=== PATIENT | male | born 1990 | race Caucasian/White ===

== ENCOUNTER 2018-09-21 03:34 | Emergency (ER) | payer MEDICAID, SELFPAY ==
[2018-09-21 03:36] VITALS: BP 148/108; PULSE 126; RESP 18; TEMP 36.8; O2SAT 99; BMI 22.6
[2018-09-21] MEDS: 0.9% Normal Saline 1,000 ML 1000 ML IV (03:53)
[2018-09-21] MEDS: Ondansetron 4 MG/2 ML Vial IV (03:53)
[2018-09-21 03:55] VITALS: RESP 20
[2018-09-21] MEDS: LORazepam 2 MG/ML Syringe 1 MG IV (03:55)
[2018-09-21 04:04] LABS: Absolute Lymphocyte Count 2.41 X10^3/ul (0.83-4.51); Absolute Neutrophil Count 6.7 X10^3/uL (2.0-7.7); Basophil# 0.04 X10^3/uL; Basophil% 0.4 % (0-1); Eosinophil# 0.11 X10^3/uL; Eosinophils% 1.1 % (0-5); Hematocrit 50.5 % (40-54); Hemoglobin 17.9 g/dl (13.0-16.5); Lymphocyte # 2.41 X10^3/ul (4.0); Lymphocyte % 23.9 % (19-41); Mean Corp Hgb Conc 35.4 g/gl (32-36); Mean Corpuscular Hgb 30.5 pg (27.0-32.0); Mean Platelet Vol. 9.4 fl (6.2-12.0); Monocyte# 0.77 X10^3/uL; Monocyte% 7.6 % (0-10); Neutrophil # 6.74 X10^3/uL (2.7-7.7); Neutrophil % 66.8 % (47-70); Platelet Count 213 K/mm3 (150-450); RBC Distribution Width CV 12.7 % (11.6-14.6); RBC Distribution Width SD 39.7 fl (35.1-43.9); Red Blood Count 5.87 M/mm3 (4.6-6.2); White Blood Count 10.1 K/mm3 (4.4-11.0)
[2018-09-21 04:10] LABS: POSITIVE COUNT NO; POSITIVE DIFFERENTIAL NO; POSITIVE MORPHOLOGY NO
[2018-09-21 04:31] LABS: ALB/GLOB Ratio 1.5 RATIO (0.9-2.4); AST(SGOT) 37 U/L (15-37); Alanine Aminotransfer ALT/SGPT 47 U/L (16-61); Albumin, Serum 4.8 g/dL (3.2-5.0); Alkaline Phosphatase 99 U/L (45-117); Anion Gap 15 (5-15); BUN 8 mg/dL (7-18); BUN/Creat Ratio 9.3 RATIO (10-20); Calcium,Total 9.5 mg/dL (8.5-10.1); Chloride 95 mmol/L (98-107); Creatinine, Serum 0.86 mg/dL (0.70-1.30); EST Glomerular Filtration Rate 112 mL/min (>60); Est Glom Filt Rate - Afr Amer 136 mL/min (>60); Estimated Creatinine Clearance 121.91 ml/min; Globulin 3.2 g/dL (2.2-4.2); Glucose 103 mg/dL (74-106); Potassium 3.4 mmol/L (3.5-5.1); Sodium Level 137 mmol/L (136-145)
--- NOTE | 2018-09-21 04:35 | ED.DCSUM_ITS ---
- ER Visit Summary Date of Service: 09/21/18 Chief Complaint: Nausea, vomiting History of Present Illness: The patient is a 27 M presents to the emergency department nausea and vomiting. Patient states he has been on an alcohol binge. He states he cut down on his drinking 2 days ago. He states that he is thrown up approximately 30 times. He states he only thing is able to keep down is enough alcohol to quell his withdrawal symptoms. He does not have any interest in detox at this time. He denies being suicidal homicidal. He denies any fevers or chills. He is on no other daily medications. Physical Examination: Vital signs reviewed General: Well-nourished, well-developed Head: Normocephalic, atraumatic Eyes: Pupils equal and reactive, extraocular muscles intact Neck, supple, no lymphadenopathy Heart: Regular rate and rhythm Respiratory: No distress, clear bilaterally Abdomen: Soft, nontender, nondistended, no peritoneal signs Back: Nontender Extremities: Nontender, no edema, no cords Skin: Normal color no rash Neuro: Alert and oriented, no focal or lateralizing deficits Test Results: [] Emergency Department Course and Treatment: IV was established. Patient was given fluids, Ativan, and Zofran. Within 30 minutes he had marked improvement of his symptoms. Within an hour he had total resolution of his nausea. He is able to drink. His labs are unremarkable. His LFTs were normal. I did reev aluate the patient and he still does not want to do any inpatient detox. I do feel that this is reasonable. He has not an acute withdrawal. I do feel that he is safe for outpatient therapy. He will be given outpatient resources for detox. He is comfortable with this plan of care. Treatment Plan: [] Disposition: Discharge Impression: 1. Nausea and vomiting This note was generated with [employer] dictation software. It may contain incorrect words, spelling, and punctuation that were not noted in review of the chart prior to signing ED Disposition - Plan for ED Patient: Instructions: ED Nausea Vomiting Referrals: Counseling,Center [GROUP OF PHYSICIANS] -
[2018-09-21] MEDS: Ondansetron ODT 4 MG Tablet PO (04:43)
[2018-09-21 04:44] VITALS: BP 152/105; PULSE 75; RESP 16; O2SAT 98
== END 2018-09-21 04:50 | disposition home or self-care (01) ==
LOC: ED 04:12
PROVIDERS: Emergency Provider Emergency Medicine
DX: R11.2 Nausea with vomiting, unspecified (principal); F41.9 Anxiety disorder, unspecified; Z79.899 Other long term (current) drug therapy
CPT/HCPCS: 80053; 85025; 96361; 96374; 96375; 99285; J7030; J2405

== ENCOUNTER 2020-10-05 10:13 | Inpatient (IN) | payer MEDICAID, SELFPAY ==
[2020-10-05 10:15] VITALS: BP 140/58; PULSE 128; RESP 17; TEMP 36.3; O2SAT 96; BMI 20.6
--- NOTE | 2020-10-05 10:38 | EKG12_ITS ---
Test Reason : Blood Pressure : / mmHG Vent. Rate : 109 BPM Atrial Rate : 109 BPM P-R Int : 136 ms QRS Dur : 100 ms QT Int : 332 ms P-R-T Axes : 081 079 064 degrees QTc Int : 447 ms Sinus tachycardia Otherwise normal ECG Confirmed by TREMAINE CUENCA, DHARMESH ([id number]), editor map TEN EGAN ([id number]) on 10/06/2020 12:42:24 PM Referred By: NANDA Confirmed By:DHARMESH PENALOZA MD
--- NOTE | 2020-10-05 10:52 | NURSING ---
NO OLD EKGS
[2020-10-05 10:54] LABS: Absolute Lymphocyte Count 1.81 X10^3/uL (0.83-4.51); Absolute Neutrophil Count 6.3 X10^3/uL (2.0-7.7); Basophil# 0.07 X10^3/uL; Basophil% 0.8 % (0-1); Eosinophil# 0.05 X10^3/uL; Eosinophils% 0.6 % (0-5); Hematocrit 54.6 % (40-54); Lymphocyte # 1.81 X10^3/ul (4.0); Lymphocyte % 21.1 % (19-41); Mean Corp Hgb Conc 35.5 g/dL (32-36); Mean Corpuscular Hgb 30.1 pg (27.0-32.0); Mean Corpuscular Volume 84.8 fL (80-94); Mean Platelet Vol. 9.3 fl (6.2-12.0); Monocyte# 0.36 X10^3/uL; Monocyte% 4.2 % (0-10); NRBC Flagged by Analyzer 0 % (0-5); Neutrophil # 6.26 X10^3/uL (2.7-7.7); Platelet Count 263 K/mm3 (150-450); RBC Distribution Width CV 12.6 % (11.6-14.6); RBC Distribution Width SD 38.7 fl (35.1-43.9); Red Blood Count 6.44 M/mm3 (4.6-6.2); White Blood Count 8.6 K/mm3 (4.4-11.0)
--- NOTE | 2020-10-05 10:54 | ED.DCSUM_ITS ---
- ER Visit Summary Date of Service: 10/05/20 Chief Complaint: Need help with alcohol History of Present Illness: The patient is a 29 M with no primary care physician. He reports that he has been drinking daily for the past 12 years. He drinks approximately 12 beers per day. His last drink was an hour ago. He has never been through detox or rehab. Does report that he has withdrawal symptoms in the morning. He has never had a seizure. Patient reports has been nausea and vomit approximately 15 times today. No blood in his emesis. Reports he is a sore throat from vomiting. He denies any abdominal pain or diarrhea. Physical Examination: Vitals: Stable. Afebrile. General: Well-nourished and well-developed. Head: Normocephalic atraumatic. Neck: Supple, no lymphadenopathy. No JVD. Nontender. Cardiovascular: Tachycardic regular rhythm. No murmurs. Respiratory: No respiratory distress. Clear to auscultation bilaterally. Abdominal: Soft, nontender, nondistended, normal bowel sounds. No guarding, rebound, or peritoneal signs. Back: Nontender. Extremities: Nontender, no edema. Skin: Normal color, no rash. Neurologic: Alert and oriented ?3. Cranial nerves II through XII are intact. Normal strength and sensation. Psych: Normal affect. Test Results: EKG sinus tach at [address] changes. CBC shows an H&H of 19.4 and 54.6, segment neutrophils 73. Chem-7 shows a glucose of 110. LFTs are normal. Lipase is 72. Alcohol is 160. Emergency Department Course and Treatment: Patient had an IV placed. He was given a liter of normal saline and Zofran IV. He is resting more comfortably. Treatment Plan: Patient be discussed with the hospitalist and admitted for further evaluation and treatment. Disposition: Admitted in improved condition. Impression: 1. Alcohol abuse. This note was generated with [employer] dictation software. It may contain incorrect words, spelling, and punctuation that were not noted in review of the chart prior to signing ED Disposition - Plan for ED Patient: Referrals: Care Physician,No Primary [Primary Care Provider] -
[2020-10-05] MEDS: 0.9% Normal Saline 1,000 ML 1000 ML IV (10:55)
[2020-10-05] MEDS: Ondansetron 4 MG/2 ML Vial IV (10:56)
[2020-10-05 11:00] LABS: Hemoglobin 19.4 g/dL (13.0-16.5)
[2020-10-05 11:12] LABS: ALB/GLOB Ratio 1.3 RATIO (0.9-2.4); AST(SGOT) 26 U/L (15-37); Alanine Aminotransfer ALT/SGPT 44 U/L (16-61); Albumin, Serum 4.6 g/dL (3.2-5.0); Alkaline Phosphatase 84 U/L (45-117); Anion Gap 6 (5-15); BUN 15 mg/dL (7-18); BUN/Creat Ratio 15.3 RATIO (10-20); Calcium,Total 9.4 mg/dL (8.5-10.1); Chloride 103 mmol/L (98-107); Creatinine, Serum 0.98 mg/dL (0.70-1.30); EST Glomerular Filtration Rate 95 mL/min (>60); Est Glom Filt Rate - Afr Amer 114 mL/min (>60); Estimated Creatinine Clearance 98.84 ml/min; Globulin 3.6 g/dL (2.2-4.2); Glucose 110 mg/dL (74-106); Lipase 72 U/L (73-393); Protein, Total 8.2 g/dL (6.4-8.2); Sodium Level 139 mmol/L (136-145)
--- NOTE | 2020-10-05 11:30 | CM.ED ---
SOCIAL WORK Referral Source: Nursing Reason for Consult: Substance Abuse-patient requesting detox Met with patient in room. Introduced role and reason for referral. Patient open to talking with this worker. Patient states has been drinking heavily for the last 8 days and using marijuana. Patient reports drinking 12 beers/day. Patient states last drink was an hour prior to arrival. Patient educated on [facility]. Patient unsure of needs after detox at this time. Plan: Admit to [facility] D. Farhat, TELEVISION TUBE INSPECTOR, INSIDE BARREL LATHE OPERATOR
[2020-10-05 12:09] VITALS: BP 139/93; PULSE 88; RESP 16; TEMP 36.8; O2SAT 97
--- NOTE | 2020-10-05 12:13 | CM.ED ---
SOCIAL WORK Call to [facility], spoke with Sowmya to update on patient's admission to [facility]. [facility] will update Anastasiya on patient's admission. Laurie Dougherty, GLASSBLOWER, PLATFORM CONSULTANT
[2020-10-05 12:30] LABS: Amphetamine Urine VISTA NEGATIVE (<1000 ng/mL); Barbiturate Urine VISTA NEGATIVE (< 200 ng/mL); Benzodiazepine Urine VISTA NEGATIVE (< 200 ng/mL); Cocaine Urine VISTA NEGATIVE (< 300 ng/mL); Ecstacy Urine VISTA NEGATIVE (< 500 ng/mL); Methadone Urine VISTA NEGATIVE (< 300 ng/mL); PCP Urine VISTA NEGATIVE (< 25 ng/mL); THC Urine VISTA POSITIVE (< 50 ng/mL); Vista UDS pH Range 6
--- NOTE | 2020-10-05 12:32 | PCM.HP.STD ---
History of Present Illness Date of Admission: 10/05/20 Chief Complaint: Alcohol abuse The patient is a 29 year old M [facility] as below who presents to the hospital after multiple episodes of emesis today. He denies any recent sick contacts, and does not think that he ate anything abnormal. Denies any diarrhea. He states that he drinks about 12 beers a day every day for the last 12 years. He seems to be very embarrassed about his issue and he wants to quit drinking alcohol if possible. He has never gone through detox before and his last drink was 1 hour prior to admission. He does appear willing to follow-up with rehab as an outpatient to get off of alcohol. He has never gone through detox or withdrawal but he says that he had been sober for 2 years while living in [place] and he started drinking almost immediately when he came back to the area. 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 Lab work is unremarkable, though he does show signs of dehydration hemoglobin up to 19.4. Urine drug screen is positive for now ethyl alcohol level of 160 as well as positive marijuana. Past Medical History Allergies No Known Allergies Allergy (Verified 10/05/20 10:14) Home Medications: Ambulatory Orders Medication Instructions Recorded NK 10/05/20 Surgical History: - - Nasal Smoking Status: Current some day smoker Tobacco Use: Cigarettes Alcohol: Heavy Drugs: Marijuana - *Family History Maternal History Items: Heart Disease Paternal History Items: Heart Disease Review of Systems Constitutional: Denies: Chills, Fever, Weight Change HEENT: Denies: Head Aches, Sinus Congestion, Sinus Drainage Cardiovascular: Denies: Chest Pain, Palpitations Respiratory: Denies: Cough, Shortness of breath at rest, Sputum production Gastrointestinal: Reports: Nausea, Vomiting. Denies: Abdominal Pain Genitourinary: Denies: Dysuria Musculoskeletal: Denies: Joint Pain, Joint Tenderness Skin: Denies: Rash, Wounds Neurological: Denies: Numbness, Tingling, Focal weakness Psychiatric: Reports: Anxiety. Denies: Depression Hematologic/ Lymphatic: Denies: Easy Bruising, Easy Bleeding VTE Information - Inpt Only VTE Present on Admission: No - Physical Exam Vitals/I&O's: Vital Signs Temp Pulse Resp BP Pulse Ox 98.3 F 88 16 139/93 H 97 10/05/20 12:09 10/05/20 12:09 10/05/20 12:09 10/05/20 12:09 10/05/20 12:09 Oxygen Delivery Method Room Air Weight: 139 lb 12.369 oz Body Mass Index (BMI) 20.6 Intake and Output for Last 24 Hours 10/03/20 10/04/20 10/05/20 23:59 23:59 23:59 Intake Total 1000 / 1000 Balance 1000 / 1000 General: Alert, Oriented x3, Cooperative, No apparent distress HEENT: Atraumatic, PERRLA, EOMI, Normocephalic Oral: Dry Mucosa Neck: Supple, No JVD Lungs: Clear to auscultation, Normal air movement, No rhonchi, No wheeze, No rales Cardiovascular: Regular rate, Regular Rhythm, Normal S1, Normal S2, No murmurs Abdomen: Soft, Non Tender, Non-Distended, No Hepato-splenomegaly Extremities: No edema, Capillary Refill Less than 3 Seconds Skin: No rashes, No breakdown Neurological: Neuro grossly intact, Sensory exam intact to light touch and pain Psych/Mental Status: Anxious, Restless Laboratory Results 10/05/20 10:45: WBC 8.6, RBC 6.44 H, Hgb 19.4 H*, Hct 54.6 H, MCV 84.8, MCH 30.1, MCHC 35.5, RDW Std Deviation 38.7, RDW Coeff of Negar 12.6, Plt Count 263, MPV 9.3, Immature Gran % (Auto) 0.300, Neut % (Auto) 73.0 H, Lymph % (Auto) 21.1, [place] % (Auto) 4.2, Eos % (Auto) 0.6, Baso % (Auto) 0.8, Absolute Neuts (auto) 6.3, Absolute Lymphs (auto) 1.81, Nucleated RBC % 0 10/05/20 10:45: Sodium 139, Potassium 4.0, Chloride 103, Carbon Dioxide 30.0, Anion Gap 6, BUN 15, Creatinine 0.98, Estim Creat Clear Calc 98.84, Est GFR (MDRD) Af Amer 114, Est GFR (MDRD) Non-Af 95, BUN/Creatinine Ratio 15.3, Glucose 110 H, Calcium 9.4, Total Bilirubin 0.70, AST 26, ALT 44, Alkaline Phosphatase 84, Total Protein 8.2, Albumin 4.6, Globulin 3.6, Albumin/Globulin Ratio 1.3, Lipase 72 L 10/05/20 10:45: Ethyl Alcohol 160.0 10/05/20 12:10: Urine Opiates Screen NEGATIVE, Urine Methadone Screen NEGATIVE, Ur Barbiturates Screen NEGATIVE, Ur Phencyclidine Scrn NEGATIVE, Ur Amphetamines Screen NEGATIVE, U Methamphetamin-MDMA NEGATIVE, U Benzodiazepines Scrn NEGATIVE, Urine Cocaine Screen NEGATIVE, U Cannabinoids Screen POSITIVE H, Ur Drug Screen Comment Assessment/Plan 1. Acute alcohol withdrawal/dehydration secondary to emesis -Continue with the alcohol withdrawal protocol with phenobarbital taper -Follow-up outpatient with 180 -We will continue to monitor -He had been sober for about 2 years and started drinking since he came back here from [place] he is not quite sure why he started drinking DVT: Ambulation Inpatient E&M: 92558 Init Hosp L2
[2020-10-05 12:46] VITALS: BP 140/101; PULSE 105; RESP 18; TEMP 36.8; O2SAT 97; BMI 20.2; BMI 20.6
[2020-10-05 13:05] VITALS: BP 140/101; PULSE 105; RESP 18; TEMP 36.8; O2SAT 97
[2020-10-05] MEDS: Phenobarbital 32.4 MG Tablet 64.8 MG PO ×3 (13:47→22:02)
[2020-10-05] MEDS: 0.9% Normal Saline 1,000 ML 125 ML IV ×2 (13:47→22:05)
[2020-10-05] MEDS: hydrOXYzine PAM 25 MG Capsule 50 MG PO ×2 (15:04→22:02)
[2020-10-05 17:24] VITALS: BP 149/86; PULSE 105; RESP 16; TEMP 37.1; O2SAT 98
[2020-10-05] MEDS: Gabapentin 300 MG Capsule PO (17:34)
[2020-10-05 20:01] VITALS: BP 138/88; PULSE 95; RESP 18; TEMP 36.9; O2SAT 94
[2020-10-05] MEDS: traZODone 100 MG Tablet PO (23:04)
[2020-10-06 02:50] VITALS: BP 114/56; PULSE 79; RESP 16; TEMP 36.8; O2SAT 95
[2020-10-06] MEDS: hydrOXYzine PAM 25 MG Capsule 50 MG PO ×2 (02:52→09:59)
[2020-10-06] MEDS: Phenobarbital 32.4 MG Tablet 64.8 MG PO ×6 (02:53→21:29)
[2020-10-06 06:20] LABS: Absolute Lymphocyte Count 2.08 X10^3/uL (0.83-4.51); Absolute Neutrophil Count 4.4 X10^3/uL (2.0-7.7); Basophil# 0.02 X10^3/uL; Basophil% 0.3 % (0-1); Eosinophil# 0.12 X10^3/uL; Eosinophils% 1.7 % (0-5); Hematocrit 42.5 % (40-54); Hemoglobin 14.5 g/dL (13.0-16.5); Lymphocyte # 2.08 X10^3/ul (4.0); Lymphocyte % 29.5 % (19-41); Mean Corp Hgb Conc 34.1 g/dL (32-36); Mean Corpuscular Hgb 29.9 pg (27.0-32.0); Mean Corpuscular Volume 87.6 fL (80-94); Mean Platelet Vol. 9.7 fl (6.2-12.0); Monocyte# 0.44 X10^3/uL; Monocyte% 6.2 % (0-10); NRBC Flagged by Analyzer 0 % (0-5); Neutrophil # 4.38 X10^3/uL (2.7-7.7); Platelet Count 154 K/mm3 (150-450); RBC Distribution Width CV 12.4 % (11.6-14.6); Red Blood Count 4.85 M/mm3 (4.6-6.2); White Blood Count 7.1 K/mm3 (4.4-11.0)
[2020-10-06] MEDS: 0.9% Saline Lock 10 ML Syringe IV (07:01)
[2020-10-06 08:50] VITALS: BP 129/86; PULSE 89; RESP 18; TEMP 36.6; O2SAT 99
--- NOTE | 2020-10-06 09:31 | ADDICTION ---
This fiction and nonfiction prose writer met with PT in his room to complete ASAM, MSE, AUDIT assessments and to plan for discharge. PT A+Ox4. All assessments completed, faxed to [facility] and placed in PT's chart on [employer]. PT was cooperative but refused follow-up coordination/ d/c planning. Resources provided.
[2020-10-06] MEDS: Folic Acid 1 MG Tablet PO (09:46)
[2020-10-06] MEDS: Thiamine Hydrochloride 100 MG Tablet PO (09:46)
--- NOTE | 2020-10-06 10:00 | PCM.PN.HOSP ---
Subjective: Feeling better today, medications have started to work to control any of his symptoms from withdrawal. Vitals/I&O's: Vital Signs Temp Pulse Resp BP Pulse Ox 97.9 F 89 18 129/86 H 99 10/06/20 08:50 10/06/20 08:50 10/06/20 08:50 10/06/20 08:50 10/06/20 08:50 Oxygen Delivery Method Room Air Weight: 137 lb Body Mass Index (BMI) 20.2 Intake and Output for Last 24 Hours 10/04/20 10/05/20 10/06/20 23:59 23:59 23:59 Intake Total 2300 / 2300 1000 / 1000 Balance 2300 / 2300 1000 / 1000 General: Alert, Oriented x3, Cooperative, No apparent distress HEENT: Atraumatic, PERRLA, EOMI, Normocephalic Oral: Moist mucosa Neck: Supple, No JVD Lungs: Clear to auscultation, Normal air movement, No rhonchi, No wheeze, No rales Cardiovascular: Regular rate, Regular Rhythm, Normal S1, Normal S2, No murmurs Abdomen: Soft, Non Tender, Non-Distended, No Hepato-splenomegaly Extremities: No edema, Capillary Refill Less than 3 Seconds Skin: No rashes, No breakdown Neurological: Neuro grossly intact, Sensory exam intact to light touch and pain Psych/Mental Status: Anxious, Restless Laboratory Results 10/05/20 10:45: WBC 8.6, RBC 6.44 H, Hgb 19.4 H*, Hct 54.6 H, MCV 84.8, MCH 30.1, MCHC 35.5, RDW Std Deviation 38.7, RDW Coeff of Negar 12.6, Plt Count 263, MPV 9.3, Immature Gran % (Auto) 0.300, Neut % (Auto) 73.0 H, Lymph % (Auto) 21.1, [place] % (Auto) 4.2, Eos % (Auto) 0.6, Baso % (Auto) 0.8, Absolute Neuts (auto) 6.3, Absolute Lymphs (auto) 1.81, Nucleated RBC % 0 10/05/20 10:45: Sodium 139, Potassium 4.0, Chloride 103, Carbon Dioxide 30.0, Anion Gap 6, BUN 15, Creatinine 0.98, Estim Creat Clear Calc 98.84, Est GFR (MDRD) Af Amer 114, Est GFR (MDRD) Non-Af 95, BUN/Creatinine Ratio 15.3, Glucose 110 H, Calcium 9.4, Total Bilirubin 0.70, AST 26, ALT 44, Alkaline Phosphatase 84, Total Protein 8.2, Albumin 4.6, Globulin 3.6, Albumin/Globulin Ratio 1.3, Lipase 72 L 10/05/20 10:45: Ethyl Alcohol 160.0 10/05/20 12:10: Urine Opiates Screen NEGATIVE, Urine Methadone Screen NEGATIVE, Ur Barbiturates Screen NEGATIVE, Ur Phencyclidine Scrn NEGATIVE, Ur Amphetamines Screen NEGATIVE, U Methamphetamin-MDMA NEGATIVE, U Benzodiazepines Scrn NEGATIVE, Urine Cocaine Screen NEGATIVE, U Cannabinoids Screen POSITIVE H, Ur Drug Screen Comment 10/06/20 05:55: WBC 7.1, RBC 4.85, Hgb 14.5, Hct 42.5, MCV 87.6, MCH 29.9, MCHC 34.1, RDW Std Deviation 40.0, RDW Coeff of Negar 12.4, Plt Count 154, MPV 9.7, Immature Gran % (Auto) 0.300, Neut % (Auto) 62.0, Lymph % (Auto) 29.5, [place] % (Auto) 6.2, Eos % (Auto) 1.7, Baso % (Auto) 0.3, Absolute Neuts (auto) 4.4, Absolute Lymphs (auto) 2.08, Nucleated RBC % 0 Current Medications Dicyclomine HCl (Dicyclomine 10 Mg Capsule) 20 mg PO Q6H PRN PRN PRN Reason: abdominal discomfort Folic Acid (Folic Acid 1 Mg Tablet) 1 mg PO DAILY@0800 [facility] Last Admin: 10/06/20 09:46 Dose: 1 mg Documented by: Gabapentin (Gabapentin 300 Mg Capsule) 300 mg PO Q8H PRN PRN PRN Reason: moderate to severe anxiety Last Admin: 10/05/20 17:34 Dose: 300 mg Documented by: Hydroxyzine Pamoate (Hydroxyzine Riddhi 25 Mg Capsule) 50 mg PO Q4H PRN PRN PRN Reason: mild anxiety Last Admin: 10/06/20 09:59 Dose: 50 mg Documented by: Loperamide HCl (Loperamide 2 Mg Capsule) 2 mg PO Q4H PRN PRN PRN Reason: LOOSE STOOLS Ondansetron HCl (Ondansetron 8 Mg Tablet) 8 mg PO Q8H PRN PRN PRN Reason: NAUSEA Phenobarbital (Phenobarbital 32.4 Mg Tablet) 97.2 mg PO Q4H ACE; Taper Stop: 10/09/20 21:59 Last Admin: 10/06/20 09:46 Dose: 97.2 mg Documented by: Sodium Chloride (0.9% Saline Lock 10 Ml Syringe) 10 - 40 ml IV UD PRN PRN Reason: SALINE FLUSH Last Admin: 10/06/20 07:01 Dose: 10 ml Documented by: Thiamine HCl (Thiamine Hydrochloride 100 Mg Tablet) 100 mg PO DAILYCM ACE Last Admin: 10/06/20 09:46 Dose: 100 mg Documented by: Trazodone HCl (Trazodone 100 Mg Tablet) 100 mg PO QHS PRN PRN Reason: INSOMNIA Last Admin: 10/05/20 23:04 Dose: 100 mg Documented by: STROKE Vital Signs/Narrative: Vital Signs Temp Pulse Resp BP Pulse Ox 10/06/20 08:50 97.9 F 89 18 129/86 H 99 Medical Necessity - Tobacco Use Smoking Status: Current some day smoker Tobacco Use: Cigarettes Assessment/Plan 1. Acute alcohol withdrawal/dehydration secondary to emesis -Continue with the alcohol withdrawal protocol with phenobarbital taper -Follow-up outpatient with 180 -We will continue to monitor -He had been sober for about 2 years and started drinking since he came back here from [place] he is not quite sure why he started drinking -Dehydration has resolved, his hemoglobin went from 19.4 to 14.5 DVT: Ambulation Inpatient E&M: 55914 Subs Hosp L2
[2020-10-06 14:50] VITALS: BP 121/84; PULSE 78; RESP 18; TEMP 36.7; O2SAT 98
[2020-10-06 20:20] VITALS: BP 117/70; PULSE 83; RESP 16; TEMP 36.8; O2SAT 96
[2020-10-07 02:09] VITALS: BP 111/69; PULSE 66; RESP 16; TEMP 36.7; O2SAT 95
[2020-10-07] MEDS: Phenobarbital 32.4 MG Tablet 64.8 MG PO ×6 (02:13→21:52)
[2020-10-07 09:20] VITALS: BP 158/92; PULSE 95; RESP 16; TEMP 36.9; O2SAT 97
[2020-10-07] MEDS: Folic Acid 1 MG Tablet PO (09:22)
[2020-10-07] MEDS: Thiamine Hydrochloride 100 MG Tablet PO (09:22)
[2020-10-07] MEDS: Ondansetron 8 MG Tablet PO (09:25)
--- NOTE | 2020-10-07 10:49 | PN_ITS ---
Subjective: Doing well, feels better today no nausea or vomiting. Vitals/I&O's: Vital Signs Temp Pulse Resp BP Pulse Ox 98.4 F 95 16 158/92 H 97 10/07/20 09:20 10/07/20 09:20 10/07/20 09:20 10/07/20 09:20 10/07/20 09:20 Oxygen Delivery Method Room Air Weight: 137 lb Body Mass Index (BMI) 20.2 Intake and Output for Last 24 Hours 10/05/20 10/06/20 10/07/20 23:59 23:59 23:59 Intake Total 2300 / 2300 1000 / 1250 250 / 250 Balance 2300 / 2300 1000 / 1250 250 / 250 General: Alert, Oriented x3, Cooperative, No apparent distress HEENT: Atraumatic, PERRLA, EOMI, Normocephalic Oral: Moist mucosa Neck: Supple, No JVD Lungs: Clear to auscultation, Normal air movement, No rhonchi, No wheeze, No rales Cardiovascular: Regular rate, Regular Rhythm, Normal S1, Normal S2, No murmurs Abdomen: Soft, Non Tender, Non-Distended, No Hepato-splenomegaly Extremities: No edema, Capillary Refill Less than 3 Seconds Skin: No rashes, No breakdown Neurological: Neuro grossly intact, Sensory exam intact to light touch and pain Psych/Mental Status: Normal affect, appropriate Current Medications Dicyclomine HCl (Dicyclomine 10 Mg Capsule) 20 mg PO Q6H PRN PRN PRN Reason: abdominal discomfort Folic Acid (Folic Acid 1 Mg Tablet) 1 mg PO DAILY@0800 [facility] Last Admin: 10/07/20 09:22 Dose: 1 mg Documented by: Gabapentin (Gabapentin 300 Mg Capsule) 300 mg PO Q8H PRN PRN PRN Reason: moderate to severe anxiety Last Admin: 10/05/20 17:34 Dose: 300 mg Documented by: Hydroxyzine Pamoate (Hydroxyzine Riddhi 25 Mg Capsule) 50 mg PO Q4H PRN PRN PRN Reason: mild anxiety Last Admin: 10/06/20 09:59 Dose: 50 mg Documented by: Loperamide HCl (Loperamide 2 Mg Capsule) 2 mg PO Q4H PRN PRN PRN Reason: LOOSE STOOLS Ondansetron HCl (Ondansetron 8 Mg Tablet) 8 mg PO Q8H PRN PRN PRN Reason: NAUSEA Last Admin: 10/07/20 09:25 Dose: 8 mg Documented by: Phenobarbital (Phenobarbital 32.4 Mg Tablet) 64.8 mg PO Q4H ACE; Taper Stop: 10/09/20 21:59 Last Admin: 10/07/20 09:22 Dose: 64.8 mg Documented by: Sodium Chloride (0.9% Saline Lock 10 Ml Syringe) 10 - 40 ml IV UD PRN PRN Reason: SALINE FLUSH Last Admin: 10/06/20 07:01 Dose: 10 ml Documented by: Thiamine HCl (Thiamine Hydrochloride 100 Mg Tablet) 100 mg PO DAILYCM ACE Last Admin: 10/07/20 09:22 Dose: 100 mg Documented by: Trazodone HCl (Trazodone 100 Mg Tablet) 100 mg PO QHS PRN PRN Reason: INSOMNIA Last Admin: 10/05/20 23:04 Dose: 100 mg Documented by: STROKE Vital Signs/Narrative: Vital Signs Temp Pulse Resp BP Pulse Ox 10/07/20 09:20 98.4 F 95 16 158/92 H 97 Medical Necessity - Tobacco Use Smoking Status: Current some day smoker Tobacco Use: Cigarettes Assessment/Plan 1. Acute alcohol withdrawal/dehydration secondary to emesis -Continue with the alcohol withdrawal protocol with phenobarbital taper -Follow-up outpatient with 180 -We will continue to monitor -He had been sober for about 2 years and started drinking since he came back here from [place] he is not quite sure why he started drinking -Dehydration has resolved, his hemoglobin went from 19.4 to 14.5 DVT: Ambulation Inpatient E&M: 09524 Subs Hosp L2
[2020-10-07 14:21] VITALS: BP 131/93; PULSE 95; RESP 16; TEMP 36.5; O2SAT 97
[2020-10-07 17:27] VITALS: BP 114/77; PULSE 69; RESP 18; TEMP 36.8; O2SAT 97
[2020-10-07 21:50] VITALS: BP 137/95; PULSE 97; RESP 18; TEMP 36.9; O2SAT 96
[2020-10-07] MEDS: traZODone 100 MG Tablet PO (21:52)
[2020-10-08 03:23] VITALS: BP 110/70; PULSE 87; RESP 14; TEMP 36.4; O2SAT 95
[2020-10-08] MEDS: Phenobarbital 32.4 MG Tablet 64.8 MG PO (03:28)
[2020-10-08 08:10] VITALS: BP 110/81; PULSE 82; RESP 14; TEMP 36.8; O2SAT 98
[2020-10-08] MEDS: Folic Acid 1 MG Tablet PO (08:14)
[2020-10-08] MEDS: Thiamine Hydrochloride 100 MG Tablet PO (08:14)
--- NOTE | 2020-10-08 09:15 | PCM.DC ---
You will use the following diet at home:: No restrictions Your food should be the consistency of: Regular Your liquids should be the consistency of: Regular/Thin Discharge Activity: Return to Normal Activity Weight Bearing Status: Weight bearing as tolerated Instructions: Alcoholism: Myths and Facts, Understanding Alcoholism, The Impact of Alcoholism, Alcoholism: How to be Part of the Solution, Alcoholism: Getting Help Additional Instructions: follow up with [facility] from today as planned Allergies/Adverse Reactions: Allergies No Known Allergies Allergy (Verified 10/05/20 10:14) Medications to take at Discharge NK 10/05/20 Primary Care Physician: Care Physician,No Primary [Primary Care Provider] - Test Results: Test results from this visit will be discussed in further detail at your follow-up appointment, if applicable. Please Follow Up With: [facility] When: 1-2 weeks to establish PCP care Proposed Discharge Date: 10/08/20
--- NOTE | 2020-10-08 14:24 | PCM.DC.SUM ---
Discharge Date and Diagnosis Date of Admission: 10/05/20 Date of Discharge: 10/08/20 - Primary Discharge Diagnosis Acute Problems: acute alcohol withdrawal Hospital Course and Treatment Operations: None Procedures: None Summary of Care Provided: The patient is a 29 year old M with past medical history of alcohol abuse was admitted through the ED on 10/05/2020 with a complaint of multiple episodes of emesis. He drank about 12 beers daily for the past 12 years. His last drink was an hour prior to admission. Hemoglobin was up to 19.4 which is likely due to dehydration. Urine tox was positive for marijuana. He was admitted and managed for alcohol withdrawal. He was started on alcohol withdrawal protocol with phenobarbital. He tolerated 3-day detox process well. He remained stable and was discharged home on 10/08/2020 and is to follow-up with alcohol[facility] as per his request. He is to also follow-up with [facility] to establish PCP care. Patient seen and examined prior to discharge. He had no complaints. Review of symptoms otherwise negative. Labs and vitals reviewed. Medication reviewed and reconciled. O/E: Vital Signs Temp Pulse Resp BP Pulse Ox 98.2 F 82 14 110/81 H 98 10/08/20 08:10 10/08/20 08:10 10/08/20 08:10 10/08/20 08:10 10/08/20 08:10 General: Alert, Oriented x3, Cooperative, No apparent distress HEENT: Atraumatic, PERRLA, EOMI, Normocephalic Oral: Moist mucosa Neck: Supple, No JVD Lungs: Clear to auscultation, Normal air movement, No rhonchi, No wheeze, No rales Cardiovascular: Regular rate, Regular Rhythm, Normal S1, Normal S2, No murmurs Abdomen: Soft, Non Tender, Non-Distended, No Hepato-splenomegaly Extremities: No edema, Capillary Refill Less than 3 Seconds Skin: No rashes, No breakdown Neurological: Neuro grossly intact, Sensory exam intact to light touch and pain Psych/Mental Status: Normal affect, appropriate Plan is for discharge home today. - Physical Exam Vitals/I&O's: Vital Signs Temp Pulse Resp BP Pulse Ox 98.2 F 82 14 110/81 H 98 10/08/20 08:10 10/08/20 08:10 10/08/20 08:10 10/08/20 08:10 10/08/20 08:10 Oxygen Delivery Method Room Air Weight: 137 lb Body Mass Index (BMI) 20.2 Intake and Output for Last 24 Hours 10/06/20 10/07/20 10/08/20 23:59 23:59 23:59 Intake Total 1000 / 1250 250 / 250 Balance 1000 / 1250 250 / 250 Discharge Diet: No Restrictions Discharge Activity: Return to Normal Activity Weight Bearing Status: Weight bearing as tolerated Call your doctor if you observe: Fever of 101 or Higher, Shortness of breath, Dizziness, Fainting spells Home Medications: Medications to take at Discharge NK 10/05/20 Primary Care Physician: Care Physician,No Primary [Primary Care Provider] - Please Follow Up With: [facility] When: 1-2 weeks to establish PCP care Patient Instructions: Understanding Alcoholism, Alcoholism: Myths and Facts, The Impact of Alcoholism, Alcoholism: How to be Part of the Solution, Alcoholism: Getting Help Disposition: Home Minutes spent on discharge:: 35 Patient Condition:: Stable Medical Necessity - Tobacco Use Smoking Status: Current some day smoker Tobacco Use: Cigarettes Meaningful Use Info Meaningful Use Diagnoses (Choose all that apply): None applicable Inpatient E&M: 89151 Disch Hosp
== END 2020-10-08 11:35 | disposition home or self-care (01) | DRG 775 ==
LOC: ED 11:07 → PCU 12:50
PROVIDERS: Admitting Provider Family Medicine; Emergency Provider Emergency Medicine; Visit Provider Student in an Organized Health Care Education/Training Program
DX: F10.239 Alcohol dependence with withdrawal, unspecified (principal); Y90.6 Blood alcohol level of 120-199 mg/100 ml; F17.210 Nicotine dependence, cigarettes, uncomplicated; E86.0 Dehydration; R11.2 Nausea with vomiting, unspecified
CPT/HCPCS: 80053; 80307; 82077; 83690; 85025; 93005; 99285; 99406; J7030; A4216; J2405

== ENCOUNTER → 2020-10-12 14:44 | Outpatient (CLI) | payer MEDICAID, SELFPAY ==
[2020-10-12 13:38] VITALS: BMI 21.4
[2020-10-12 17:42] LABS: Vitamin D,25 Hydroxy 10.6 ng/mL
[2020-10-12 17:45] LABS: Free T3 2.8 pg/mL (2.18-3.98); T4 Free Direct 1.02 ng/dL (0.76-1.46); Thyroid Stim Hormone (TSH) 1.25 uIU/mL (0.358-3.74)
== END ==
PROVIDERS: PCP Internal Medicine; Referring Provider Internal Medicine; Visit Provider Internal Medicine
DX: F41.9 Anxiety disorder, unspecified (principal); F10.11 Alcohol abuse, in remission
CPT/HCPCS: 36415; 82306; 84439; 84443; 84481

== ENCOUNTER 2021-07-29 20:25 | Inpatient (IN) | payer BC, MEDICAID, SELFPAY ==
[2021-07-29 20:26] VITALS: BP 168/130; PULSE 129; RESP 18; TEMP 36.6; O2SAT 97; BMI 22.7
[2021-07-29 20:48] LABS: Absolute Lymphocyte Count 2.27 X10^3/uL (0.83-4.51); Absolute Neutrophil Count 7.9 X10^3/uL (2.0-7.7); Basophil# 0.09 X10^3/uL; Basophil% 0.8 % (0-1); Eosinophil# 0.18 X10^3/uL; Eosinophils% 1.6 % (0-5); Hematocrit 50.5 % (40-54); Hemoglobin 17.7 g/dL (13.0-16.5); Lymphocyte # 2.27 X10^3/ul (0.83-4.51); Lymphocyte % 20.2 % (19-41); Mean Corpuscular Volume 88.4 fL (80-94); Mean Platelet Vol. 9.5 fl (6.2-12.0); Monocyte# 0.75 X10^3/uL; Monocyte% 6.7 % (0-10); NRBC Flagged by Analyzer 0 % (0-5); Neutrophil # 7.89 X10^3/uL (2.7-7.7); Neutrophil % 70.2 % (47-70); Platelet Count 173 K/mm3 (150-450); RBC Distribution Width CV 12.9 % (11.6-14.6); RBC Distribution Width SD 41.6 fl (35.1-43.9); Red Blood Count 5.71 M/mm3 (4.6-6.2); White Blood Count 11.2 K/mm3 (4.4-11.0)
[2021-07-29 21:14] LABS: Anion Gap 10 (5-15); BUN 13 mg/dL (7-18); BUN/Creat Ratio 14.7 RATIO (10-20); Calcium,Total 8.8 mg/dL (8.5-10.1); Chloride 102 mmol/L (98-107); Creatinine, Serum 0.88 mg/dL (0.70-1.30); EST Glomerular Filtration Rate 106 mL/min (>60); Est Glom Filt Rate - Afr Amer 129 mL/min (>60); Estimated Creatinine Clearance 120.17 ml/min; Glucose 121 mg/dL (74-106); Sodium Level 138 mmol/L (136-145)
--- NOTE | 2021-07-29 21:15 | EX.ED.SAOD ---
HPI History of Present Illness Chief Complaint: Substance Abuse Informant: patient Onset/Context/Timing Onset: Days Context: Gradual Onset Timing: Continuous Current Severity: Mild Maximum Severity: Moderate Associated Symptoms Associated Symptoms: Positive for vomiting*; Negative for suicidal ideation and homicidal ideation Narrative Narrative: 30-year-old male history of alcohol abuse and anxiety. His only prior detox was October last year. States he began drinking heavily again. He is trying to detox himself at home but states he gets too sick when he tapers his alcohol consumption. He typically drinks 20-30 beers a day. States he has been having nausea and vomiting. No hematemesis. Prior similar symptoms: Yes PFSH PFSH Medical History Anxiety Herpes History of alcohol abuse Home Medications NK 07/29/21 [History Last Taken Unknown] Allergy/AdvReac Type Severity Reaction Status Date / Time No Known Allergies Allergy Verified 07/29/21 20:28 Family History Father Heart disease Myocardial infarction Grandfather Heart disease Myocardial infarction Cancer stomach Grandmother Colon cancer Surgical History Hx of rhinoplasty Social History Smoking Status: Never smoker Tobacco: How many years used: 7 Smokeless tobacco user: chewing tobacco alcohol intake: former year quit: 2020 substance use type: does not use what type of physical activity do you participate in: bicycling frequency: daily ROS ROS ED ROS Narrative Nausea and vomiting. Review of Systems ROS Unobtainable: Denies due to encephalopathy Constitutional Constitutional ED: Denies chills or fever(s) Eyes Eyes: Denies change in vision ENT ENT ED: Denies ear pain or rhinorrhea Cardiovascular Cardiovascular: Denies chest pain Respiratory/Chest Respiratory/Chest: Denies cough or dyspnea Gastrointestinal Gastrointestinal: Reports nausea and vomiting; Denies abdominal pain or diarrhea Genitourinary Genitourinary ED: Denies dysuria Musculoskeletal Musculoskeletal: Denies myalgias Integumentary Denies rash Neurologic Neurologic: Denies headache(s) Psychiatric Psychiatric: Reports anxiety; Denies depression, suicidal ideation or suicidal thoughts Endocrine Endocrinology: Denies polyuria Hematologic/Lymphatic Hematologic/Lymphatic: Denies easy bruising Allergic/Immunologic Allergic/Immunologic ED: Denies urticaria EXAM Physical Exam Narrative Exam Narrative: 30-year-old male anxious. Vital signs stable except blood pressure 160/130 and his heart rate 129. Afebrile. Pulse ox 97% on room air no hypoxia. H EENT exam unremarkable. Moist remembers. Neck nontender no lymphadenopathy. Lungs clear to auscultation bilaterally. Heart tachycardic rate about 125 no murmur. Chest were nontender. Abdomen soft nontender. Normal bowel sounds no peritoneal signs. Moving all 4 extremities. Nontender. No edema. Back nontender. Neurologically is awake and alert with no focal motor deficits. Const Vital Signs: 07/29/21 20:26 Temperature 97.9 F Temperature Source Temporal Pulse Rate 129 H Respiratory Rate 18 Blood Pressure 168/130 H Blood Pressure Mean 142 Pulse Ox 97 Oxygen Delivery Method Room Air Positive well nourished and well developed; Negative for obese, cachectic, contractures or unkempt General Appearance ED: well developed; Negative for unkempt, cachectic, contractures, NAD or pallor Nutritional Appearance: Negative for cachectic or obese HEENT Reports moist mucous membranes atraumatic; Negative for trauma or tenderness Eyes PERRL and EOMs intact bilaterally Neck no lymphadenopathy, supple and no JVD Thyroid: Negative for tender Lymph Lymphatic: no lymphadenopathy noted; Negative for lymphadenopathy Chest Wall inspection of chest normal and palpation of chest normal Resp normal respiratory effort and clear to auscultation bilaterally Auscultation: Negative for rales, rhonchi or wheezes Cardio regular rhythm, S1 normal heart sound, S2 normal heart sound and no murmurs; Negative for regular rate Rate: tachycardic GI soft to palpation, non-tender, non-distended and no masses Inspection: Negative for abdominal distention Palpation: Negative for tender, guarding or rigid Back/Spine no CVA tenderness General Back: Negative for CVA tenderness Cervical Spine: Negative for cervical spine tenderness Extremity General Extremety ED: Negative for edema or tenderness General Extremity: Negative for edema Neuro oriented x3 Sensorium / Orientation: alert, oriented to person, oriented to place and oriented to time; Negative for confused, lethargic or stuporous Motor Exam: strength 5/5 throughout Psych mental status grossly normal and thought process normal Appearance: Negative for unkempt Attitude: No belligerent, No agitated, No aggressive and No hostile Mood & Affect: anxious; Negative for depressed or tearful Skin General Skin Exam: Negative for jaundice or pallor Lesions: no lesions Rashes: no rashes MDM MDM MDM Narrative Medical decision making narrative: 30-year-old male history of alcohol abuse with prior detox in October. He is deciding if he wants inpatient detox. He does appear to have withdrawal symptoms. With hypertension and tachycardia. Repeat exam at 9:45 PM. Patient doing well. And I discussed his options. He will be admitted to the hospital for detox. Lab Data Attestation: I reviewed the patient's lab results. Lab results narrative: CBC shows a white count 11.2. Hemoglobin 17.7. Hematocrit 50. Platelets 173. Electrolytes gap of 10 normal BUN and creatinine. Normal glucose of 121. Tox screen negative. Alcohol 167. Labs: Laboratory Results - last 24 hr 07/29/21 07/29/21 07/29/21 20:35 20:40 20:40 WBC 11.2 H RBC 5.71 Hgb 17.7 H Hct 50.5 MCV 88.4 MCH 31.0 MCHC 35.0 RDW Std Deviation 41.6 RDW Coeff of Negar 12.9 Plt Count 173 MPV 9.5 Immature Gran % (Auto) 0.500 Neut % (Auto) 70.2 H Lymph % (Auto) 20.2 [place] % (Auto) 6.7 Eos % (Auto) 1.6 Baso % (Auto) 0.8 Absolute Neuts (auto) 7.9 H Absolute Lymphs (auto) 2.27 Nucleated RBC % 0 Sodium 138 Potassium 4.0 Chloride 102 Carbon Dioxide 26.0 Anion Gap 10 BUN 13 Creatinine 0.88 Estim Creat Clear Calc 120.17 Est GFR (MDRD) Af Amer 129 Est GFR (MDRD) Non-Af 106 BUN/Creatinine Ratio 14.7 Glucose 121 H Calcium 8.8 Urine Opiates Screen NEGATIVE Urine Methadone Screen NEGATIVE Ur Barbiturates Screen NEGATIVE Ur Phencyclidine Scrn NEGATIVE Ur Amphetamines Screen NEGATIVE U Methamphetamin-MDMA NEGATIVE U Benzodiazepines Scrn NEGATIVE Urine Cocaine Screen NEGATIVE U Cannabinoids Screen NEGATIVE Ur Drug Screen Comment Ethyl Alcohol 07/29/21 20:40 WBC RBC Hgb Hct MCV MCH MCHC RDW Std Deviation RDW Coeff of Negar Plt Count MPV Immature Gran % (Auto) Neut % (Auto) Lymph % (Auto) [place] % (Auto) Eos % (Auto) Baso % (Auto) Absolute Neuts (auto) Absolute Lymphs (auto) Nucleated RBC % Sodium Potassium Chloride Carbon Dioxide Anion Gap BUN Creatinine Estim Creat Clear Calc Est GFR (MDRD) Af Amer Est GFR (MDRD) Non-Af BUN/Creatinine Ratio Glucose Calcium Urine Opiates Screen Urine Methadone Screen Ur Barbiturates Screen Ur Phencyclidine Scrn Ur Amphetamines Screen U Methamphetamin-MDMA U Benzodiazepines Scrn Urine Cocaine Screen U Cannabinoids Screen Ur Drug Screen Comment Ethyl Alcohol 167.0 Discharge Plan Triage Chief Complaint: Substance Abuse ED Provider: Darell Whiteside Dx/Rx/DC Orders Clinical Impression: Alcohol abuse, Anxiety, Alcohol withdrawal, Alcohol intoxication Prescriptions: No Action NK RF: 0 Primary Care Provider: Kirsten Vitale Referrals: Kirsten Vitale MD [Primary Care Provider] - Disposition Disposition: Acute Care [facility]
[2021-07-29 21:20] LABS: Amphetamine Urine VISTA NEGATIVE (<1000 ng/mL); Barbiturate Urine VISTA NEGATIVE (< 200 ng/mL); Benzodiazepine Urine VISTA NEGATIVE (< 200 ng/mL); Cocaine Urine VISTA NEGATIVE (< 300 ng/mL); Ecstacy Urine VISTA NEGATIVE (< 500 ng/mL); Methadone Urine VISTA NEGATIVE (< 300 ng/mL); PCP Urine VISTA NEGATIVE (< 25 ng/mL); THC Urine VISTA NEGATIVE (< 50 ng/mL); Vista UDS pH Range 5
[2021-07-29 21:53] VITALS: BP 142/90; PULSE 105; RESP 18; TEMP 36.6; O2SAT 97
--- NOTE | 2021-07-29 21:53 | PCM.HP.STD ---
[facility] - General General Date of Admission: 07/29/21 HPI Narrative RAH JASON, is a 30 M with a significant history of elevated blood pressure a diagnosis of hypertension; polysubstance abuse; and alcoholism who presents to the emergency department with desire to detoxify from alcohol. He reports drinking 20-30 regular can beer per day. He began drinking at about age 17. Recently he lost his job because of alcoholism. He tried tapering himself for the past 5 days. During the course of taper he had nausea; vomiting and anxiety. Also he had shortness of breath that he thinks is related to the anxiety. The last time he had nausea and vomiting was about 2 days ago. He reports that his only alcohol detoxification program was at a hospital in September 2020. Also, he uses marijuana. About a week ago he tried cocaine. Reportedly cocaine use is not part of his regular lifestyle. [facility] Medical History Anxiety Herpes History of alcohol abuse Home Medications NK 07/29/21 [History Last Taken Unknown] Allergy/AdvReac Type Severity Reaction Status Date / Time No Known Allergies Allergy Verified 07/29/21 20:28 Family History Father Heart disease Myocardial infarction Grandfather Heart disease Myocardial infarction Cancer stomach Grandmother Colon cancer Surgical History Hx of rhinoplasty Social History Smoking Status: Never smoker Tobacco: How many years used: 7 Smokeless tobacco user: chewing tobacco alcohol intake: former year quit: 2020 substance use type: does not use what type of physical activity do you participate in: bicycling frequency: daily ROS ROS Narrative Constitutional: Denies fever, chills, fatigue, anorexia and change in weight Eyes: Denies blurry vision, change in eye color, change in vision, discharge from eye(s), double vision, erythema, eye pain, loss of vision or other HEENT: Denies abnormal hearing, dysphagia, ear pain, epistaxis, headache(s), hearing loss, nasal congestion, nasal discharge, post nasal drip, sinus pressure, sore throat or other Cardiovascular: Denies chest pain or palpitations. Denies orthopnea and paroxysmal nocturnal dyspnea Respiratory/Chest: Reports shortness of breath. Denies cough, excessive phlegm production. Gastrointestinal: Had nausea and vomiting about 2 days ago but this has resolved. Denies abdominal pain, coffee ground emesis, constipation, diarrhea, dyspepsia, hematemesis, hematochezia, loose stools, melena, or other Genitourinary: Denies burning urination, difficulty urinating, dysuria, hematuria, nocturia, urinary frequency, urinary hesitancy, urinary incontinence, urinary urgency or other Musculoskeletal: Denies arthralgias, back pain, joint pain, joint stiffness, joint swelling, myalgias, neck pain or other Neurologic: Denies abnormal gait, abnormal speech, confusion, disequilibrium, dizziness, focal weakness, headache(s), numbness, paresthesias, seizure-like activity, seizures, syncope, tingling, tremor(s) or other Psychiatric: Reports anxiety. Denies homicidal ideation, suicidal ideation or other Endocrinology: Denies change in body appearance, cold intolerance, excessive sweating, heat intolerance, polydipsia, polyuria or other Hematologic/Lymphatic: Denies anemia, easy bleeding, easy bruising, lymphadenopathy or other Integumentary: Denies rashes Allergic/Immunologic: Denies rhinitis, hives, eczema, asthma or other Vital Signs Vital Signs Vital Signs: 07/29/21 20:26 Temperature 97.9 F Temperature Source Temporal Pulse Rate 129 H Respiratory Rate 18 Blood Pressure 168/130 H Blood Pressure Mean 142 Pulse Ox 97 Oxygen Delivery Method Room Air Weight Weight: 69.853 kg Body Mass Index (BMI) 22.7 Physical Exam Narrative Physical exam: General: Well-nourished, well-developed. Head: Normocephalic, atraumatic, no tenderness Eyes: PERRLA, EOMI ENT, no trauma, moist mucous membranes, no rhinorrhea Neck: Nontender, full range of motion, no spinal tenderness, deformities, step-off CVS: Regular rate and rhythm. S1-S2 present. No murmur, gallop or rub. Respiratory : clear to auscultation bilaterally, chest wall nontender, no wheezing Abdomen: Soft, nontender, nondistended, normal bowel sounds, no masses : Deferred Back: Nontender, no CVA tenderness, no midline spinal tenderness, deformities, step-offs Extremities: Nontender full range of motion, no trauma Skin: Normal color, no trauma, abrasions Neuro: Alert, oriented, cranial nerves II through XII grossly intact. Psychiatry: Fidgeting in bed. Anxious. Results Lab / Micro Data Result Diagrams: 07/29/21 20:40 07/29/21 20:40 Labs: Laboratory Results - last 24 hr 07/29/21 20:35: Urine Opiates Screen NEGATIVE, Urine Methadone Screen NEGATIVE, Ur Barbiturates Screen NEGATIVE, Ur Phencyclidine Scrn NEGATIVE, Ur Amphetamines Screen NEGATIVE, U Methamphetamin-MDMA NEGATIVE, U Benzodiazepines Scrn NEGATIVE, Urine Cocaine Screen NEGATIVE, U Cannabinoids Screen NEGATIVE, Ur Drug Screen Comment 07/29/21 20:40: WBC 11.2 H, RBC 5.71, Hgb 17.7 H, Hct 50.5, MCV 88.4, MCH 31.0, MCHC 35.0, RDW Std Deviation 41.6, RDW Coeff of Negar 12.9, Plt Count 173, MPV 9.5, Immature Gran % (Auto) 0.500, Neut % (Auto) 70.2 H, Lymph % (Auto) 20.2, [place] % (Auto) 6.7, Eos % (Auto) 1.6, Baso % (Auto) 0.8, Absolute Neuts (auto) 7.9 H, Absolute Lymphs (auto) 2.27, Nucleated RBC % 0 07/29/21 20:40: Sodium 138, Potassium 4.0, Chloride 102, Carbon Dioxide 26.0, Anion Gap 10, BUN 13, Creatinine 0.88, Estim Creat Clear Calc 120.17, Est GFR (MDRD) Af Amer 129, Est GFR (MDRD) Non-Af 106, BUN/Creatinine Ratio 14.7, Glucose 121 H, Calcium 8.8 07/29/21 20:40: Ethyl Alcohol 167.0 Assessment & Plan Assessment/Plan (1) Elevated blood pressure reading: (2) Alcohol abuse: (3) Alcohol withdrawal: QUALIFIERS: Complication of substance-induced condition: uncomplicated Qualified Code(s): F10.230 - Alcohol dependence with withdrawal, uncomplicated PLAN: Alcohol dependence; Withdrawal and desire for detoxification Review of labs showed white count of 11.2 likely reactive. Neutrophilia of 70.2. Blood glucose mildly elevated at 121. Toxicology showed alcohol level of 167. Old records reviewed showed the patient was at the hospital on 10/05/2020 to 10/08/2020 for alcoholism. Patient will be started on phenobarbital and other adjunctive medications: Gabapentin as needed; dicyclomine as needed; Vistaril as needed; Imodium as needed; trazodone as needed; Zofran as needed; scheduled thiamine; and schedule folic acid. Monitor CIWA score Elevated blood pressure the diagnosis of hypertension. Could be secondary to withdrawal. Reports history of elevated blood pressure but without an official diagnosis of hypertension. Trend blood pressures. Alcohol treatment as above. Tobacco abuse Chews tobacco. Counseled. Cocaine and marijuana abuse Counseled. DVT prophylaxis Low risk Encourage to ambulate Charges/Coding Visit Charges Inpatient E&M: 36895 Init Hosp L2
--- NOTE | 2021-07-29 22:14 | CM.ED ---
ESTRELLITA Note Referral Source: Case Find Referral Reason: Jordy HARO met with patient. Patient is here at the hospital for Ramp program. Patient has been in RAMP program previously and stated he is aware of the guidelines for the program. Patient said that his drug of choice is booze. Patient caren that his last drink was 1 1/2 hours ago and he drank 1 1/2- 2 beers prior to coming to the ED but I had been drinking all day. Patient said that he has been drinking 20-30 beers a day. Patient said that he is linked with Onesimo from [facility] through his work. Patient said that he skipped his appointment with Onesimo on . Patient said that he uses weed but hasn't used it in the past week except one time as it increases his anxiety. Patient said that when he uses marijuana he vapes and has a few hits. Patient has no concerns or questions regarding his admission. SW called Treatment Navigator and left voice mail on the confidential voice mail advising of patients presentation to the ED and admission to the RAMP program. Plan: JORDY WILCOX
[2021-07-29 22:55] VITALS: BP 156/114; PULSE 104; RESP 20; TEMP 36.8; O2SAT 95
[2021-07-29 23:00] VITALS: BMI 21.7
[2021-07-29] MEDS: Phenobarbital 32.4 MG Tablet 64.8 MG PO (23:02)
[2021-07-29] MEDS: Ondansetron 8 MG Tablet PO (23:11)
[2021-07-30] VITALS (13 sets, daily range): BP systolic 86–149; BP diastolic 43–94; PULSE 71–108; RESP 16–18; TEMP 36.4–37.3; O2SAT 95–100
[2021-07-30] MEDS: traZODone 100 MG Tablet PO (00:07)
[2021-07-30] MEDS: Gabapentin 300 MG Capsule PO (00:07)
--- NOTE | 2021-07-30 01:03 | NURSING ---
While this RN was walking towards Pts room the Pt walked into hallway and walked straight into the wall; hitting his forehead on the wall. Pt fell to the floor. Obtained vitals, assisted Pt to wheelchair, and assisted pt to bed. Pt states my forehead hurts, but not that bad. Pts bed exit has been turned on. Pt educated to use call light for assistance. Dr and supervisor blueprinting and photocopy notified.
--- NOTE | 2021-07-30 01:11 | PCS.PANDOC ---
PANDEMIC DOCUMENTATION INITIATED: Date: 07/29/2021 Time: 2597
[2021-07-30] MEDS: Phenobarbital 32.4 MG Tablet 64.8 MG PO ×6 (03:16→22:43)
[2021-07-30] MEDS: Folic Acid 1 MG Tablet PO (07:46)
[2021-07-30] MEDS: Thiamine Hydrochloride 100 MG Tablet PO (07:46)
--- NOTE | 2021-07-30 09:22 | PCS.PANDOC ---
PANDEMIC DOCUMENTATION INITIATED: Date: 03/06/2021 Time: 190
--- NOTE | 2021-07-30 09:57 | ADDICTION ---
TW met with pt to complete ASAM, AUDIT, DUDIT, MSE, LYNNETTE, and D/C Plan. Pt reported drinking 20-30 beers daily with his last use on 07/29/21. He stated he is uninterested in residential or any group counseling at this time. He wants to f/u with Onesimo, his individual therapist at [facility], upon his release. This clinician will start that process and Alejandra will report date/time back to pt. Pt stated he has no transportation needs at this time.
[2021-07-30] MEDS: Ondansetron 8 MG Tablet PO (10:47)
--- NOTE | 2021-07-30 13:51 | PN.HOSP_ITS ---
Subjective Subjective Follow-up for acute alcohol withdrawal/Hypertension/leukocytosis: Patient was seen and examined. No new complaints. No acute events overnight Objective Data Objective Data Vital Signs: Vital Signs Temp Pulse Resp BP Pulse Ox 98.5 F 94 18 137/77 H 99 07/30/21 10:33 07/30/21 10:33 07/30/21 10:33 07/30/21 10:33 07/30/21 10:33 Oxygen Delivery Method Room Air Weight: 66.8 kg Body Mass Index (BMI) 21.7 Intake & Output: Intake and Output for Last 24 Hours 07/28/21 07/29/21 07/30/21 23:59 23:59 23:59 Intake Total 1240 / 1240 Balance 1240 / 1240 Lab / Micro Data Result Diagrams: 07/29/21 20:40 07/29/21 20:40 Labs: Laboratory Results - last 24 hr 07/29/21 20:35: Urine Opiates Screen NEGATIVE, Urine Methadone Screen NEGATIVE, Ur Barbiturates Screen NEGATIVE, Ur Phencyclidine Scrn NEGATIVE, Ur Amphetamines Screen NEGATIVE, U Methamphetamin-MDMA NEGATIVE, U Benzodiazepines Scrn NEGATIVE, Urine Cocaine Screen NEGATIVE, U Cannabinoids Screen NEGATIVE, Ur Drug Screen Comment 07/29/21 20:40: WBC 11.2 H, RBC 5.71, Hgb 17.7 H, Hct 50.5, MCV 88.4, MCH 31.0, MCHC 35.0, RDW Std Deviation 41.6, RDW Coeff of Negar 12.9, Plt Count 173, MPV 9.5, Immature Gran % (Auto) 0.500, Neut % (Auto) 70.2 H, Lymph % (Auto) 20.2, [place] % (Auto) 6.7, Eos % (Auto) 1.6, Baso % (Auto) 0.8, Absolute Neuts (auto) 7.9 H, Absolute Lymphs (auto) 2.27, Nucleated RBC % 0 07/29/21 20:40: Sodium 138, Potassium 4.0, Chloride 102, Carbon Dioxide 26.0, Anion Gap 10, BUN 13, Creatinine 0.88, Estim Creat Clear Calc 120.17, Est GFR (MDRD) Af Amer 129, Est GFR (MDRD) Non-Af 106, BUN/Creatinine Ratio 14.7, Glucose 121 H, Calcium 8.8 07/29/21 20:40: Ethyl Alcohol 167.0 Physical Exam Narrative Physical exam: General: Alert, Oriented x3, Cooperative, No apparent distress, Well developed HEENT: Atraumatic Oral: Moist Mucosa Neck: Supple Lungs: Clear to auscultation Cardiovascular: HS I+II, regular, no murmurs Abdomen: Bowel Sounds Present, Soft, Non Tender Extremities: No edema Assessment & Plan Assessment/Plan (1) Elevated blood pressure reading: (2) Alcohol abuse: (3) Alcohol withdrawal: QUALIFIERS: Complication of substance-induced condition: un complicated Qualified Code(s): F10.230 - Alcohol dependence with withdrawal, uncomplicated PLAN: 1. Acute alcohol withdrawal, slowly improving CIWA score today 3 Continue phenobarbital withdrawal protocol, folic acid, thiamine 2. Elevated blood pressure, without diagnosis of hypertension, resolved Likely secondary to #1, continue to monitor 3. Nicotine dependence, advised to quit 4. Polysubstance use, advised to quit Charges/Coding Visit Charges Inpatient E&M: 40822 Subs Hosp L2
[2021-07-30 15:48] LABS: Absolute Lymphocyte Count 0.87 X10^3/uL (0.83-4.51); Absolute Neutrophil Count 5.9 X10^3/uL (2.0-7.7); Basophil# 0.04 X10^3/uL; Basophil% 0.5 % (0-1); Eosinophils% 1.4 % (0-5); Hematocrit 41.9 % (40-54); Hemoglobin 14.9 g/dL (13.0-16.5); Lymphocyte # 0.87 X10^3/ul (0.83-4.51); Lymphocyte % 11.8 % (19-41); Mean Corp Hgb Conc 35.6 g/dL (32-36); Mean Corpuscular Hgb 31.4 pg (27.0-32.0); Mean Corpuscular Volume 88.4 fL (80-94); Mean Platelet Vol. 9.5 fl (6.2-12.0); Monocyte# 0.45 X10^3/uL; Monocyte% 6.1 % (0-10); NRBC Flagged by Analyzer 0 % (0-5); Neutrophil % 79.9 % (47-70); Platelet Count 129 K/mm3 (150-450); RBC Distribution Width CV 12.7 % (11.6-14.6); RBC Distribution Width SD 41.2 fl (35.1-43.9); Red Blood Count 4.74 M/mm3 (4.6-6.2); White Blood Count 7.4 K/mm3 (4.4-11.0)
[2021-07-30 16:03] LABS: AST(SGOT) 37 U/L (15-37); Alanine Aminotransfer ALT/SGPT 44 U/L (16-61); Albumin, Serum 3.3 g/dL (3.2-5.0); Alkaline Phosphatase 85 U/L (45-117); Anion Gap 8 (5-15); BUN 17 mg/dL (7-18); BUN/Creat Ratio 16.8 RATIO (10-20); Calcium,Total 8.5 mg/dL (8.5-10.1); Chloride 103 mmol/L (98-107); Creatinine, Serum 1.01 mg/dL (0.70-1.30); EST Glomerular Filtration Rate 91 mL/min (>60); Est Glom Filt Rate - Afr Amer 110 mL/min (>60); Estimated Creatinine Clearance 100.13 ml/min; Globulin 3.2 g/dL (2.2-4.2); Glucose 131 mg/dL (74-106); Potassium 3.7 mmol/L (3.5-5.1); Protein, Total 6.5 g/dL (6.4-8.2); Sodium Level 138 mmol/L (136-145)
[2021-07-31] MEDS: Phenobarbital 32.4 MG Tablet 64.8 MG PO ×6 (03:24→22:55)
[2021-07-31 03:29] VITALS: BP 125/82; PULSE 80; RESP 16; TEMP 36.9; O2SAT 98
[2021-07-31 06:32] VITALS: BP 124/89; PULSE 73; RESP 16; TEMP 37; O2SAT 98
[2021-07-31] MEDS: BENZOCAINE/MENTHOL 1 LOZENGE MUCOUS MEM (06:38)
[2021-07-31] MEDS: Benzonatate 100 MG Capsule PO (06:38)
[2021-07-31] MEDS: Folic Acid 1 MG Tablet PO (07:58)
[2021-07-31] MEDS: Thiamine Hydrochloride 100 MG Tablet PO (07:58)
[2021-07-31] MEDS: Ondansetron 8 MG Tablet PO (08:00)
[2021-07-31 09:22] VITALS: BP 128/93; PULSE 81; RESP 16; TEMP 37.5; O2SAT 97
--- NOTE | 2021-07-31 09:44 | ADDICTION ---
Addendum entered by Alejandra Fakl 07/31/21 10:01: [facility] 1:[facility]pm Original Note: Pt met with this worker to discuss d/c planning. He has an appointment with Onesimo, his counselor at [facility] on 08/10/21. Pt is not interested in a higher level of care at this time.
[2021-07-31 11:26] VITALS: BP 131/91; PULSE 80; RESP 16; TEMP 36.8; O2SAT 98
--- NOTE | 2021-07-31 12:26 | PN.HOSP_ITS ---
Subjective Subjective Patient seen and examined. He had no acute complaints and review of symptoms otherwise negative. Objective Data Objective Data Vital Signs: Vital Signs Temp Pulse Resp BP Pulse Ox 98.2 F 80 16 131/91 H 98 07/31/21 11:26 07/31/21 11:26 07/31/21 11:26 07/31/21 11:26 07/31/21 11:26 Oxygen Delivery Method Room Air Weight: 147 lb 4.301 oz Body Mass Index (BMI) 21.7 Intake & Output: Intake and Output for Last 24 Hours 07/29/21 07/30/21 07/31/21 23:59 23:59 23:59 Intake Total 1540 / 1760 620 / 620 Balance 1540 / 1760 620 / 620 Lab / Micro Data Result Diagrams: 07/30/21 15:32 07/30/21 15:32 Labs: Laboratory Results - last 24 hr 07/30/21 15:32: Sodium 138, Potassium 3.7, Chloride 103, Carbon Dioxide 27.0, Anion Gap 8, BUN 17, Creatinine 1.01, Estim Creat Clear Calc 100.13, Est GFR (MDRD) Af Amer 110, Est GFR (MDRD) Non-Af 91, BUN/Creatinine Ratio 16.8, Glucose 131 H, Calcium 8.5, Total Bilirubin 0.50, AST 37, ALT 44, Alkaline Phosphatase 85, Total Protein 6.5, Albumin 3.3, Globulin 3.2, Albumin/Globulin Ratio 1.0 07/30/21 15:32: WBC 7.4, RBC 4.74, Hgb 14.9, Hct 41.9, MCV 88.4, MCH 31.4, MCHC 35.6, RDW Std Deviation 41.2, RDW Coeff of Negar 12.7, Plt Count 129 L, MPV 9.5, Immature Gran % (Auto) 0.300, Neut % (Auto) 79.9 H, Lymph % (Auto) 11.8 L, [place] % (Auto) 6.1, Eos % (Auto) 1.4, Baso % (Auto) 0.5, Absolute Neuts (auto) 5.9, Absolute Lymphs (auto) 0.87, Nucleated RBC % 0 Physical Exam Const alert, oriented x3 and no apparent distress Exam Limitations: no limitations HEENT head/scalp atraumatic and moist oral mucous membranes Head and Scalp: normocephalic Eyes PERRL, EOMs intact bilaterally and conjunctivae normal Neck no lymphadenopathy Resp normal respiratory effort, no retractions, no use of accessory muscles and clear to auscultation bilaterally Cardio regular rate, regular rhythm, S1 normal heart sound, S2 normal heart sound and no murmurs GI normal to inspection, nondistended, normoactive bowel sounds, soft to palpation, non-tender and non-distended Extremity normal to inspection, full ROM and no clubbing, cyanosis or edema Peripheral Pulses: Yes pulses 2+ throughout Skin no rashes or lesions noted and no wounds Neuro oriented x3, CN's II-XII intact bilaterally and moves all extremities Sensorium / Orientation: awake and alert Psych affect normal Assessment & Plan Assessment/Plan (1) Alcohol withdrawal: QUALIFIERS: Complication of substance-induced condition: uncomplicated Qualified Code(s): F10.230 - Alcohol dependence with withdrawal, uncomplicated (2) Alcohol intoxication: PLAN: #Acute alcohol withdrawal * Currently on alcohol withdrawal protocol with phenobarbital * On thiamine, folic acid and Multivite's. * Monitor CIWA score * #Elevated blood pressure * Noted known hypertensive. Will monitor blood pressure for now. Blood pressure has improved and is 131/91 today. * #Nicotine dependence: Counseled to quit. Nicotine patch DVT prophylaxis: Low risk. Encourage ambulation. Disposition: For discharge tomorrow. Charges/Coding Visit Charges Inpatient E&M: 19512 Subs Hosp L2
[2021-07-31 14:30] VITALS: BP 127/82; PULSE 79; RESP 16; TEMP 36.8; O2SAT 99
[2021-07-31 22:52] VITALS: BP 124/80; PULSE 78; RESP 16; TEMP 36.7; O2SAT 100
[2021-07-31] MEDS: traZODone 100 MG Tablet PO (22:55)
[2021-08-01] MEDS: Phenobarbital 32.4 MG Tablet 64.8 MG PO ×2 (03:22→06:51)
[2021-08-01] MEDS: BENZOCAINE/MENTHOL 1 LOZENGE MUCOUS MEM (03:24)
[2021-08-01 06:50] VITALS: BP 109/74; PULSE 76; RESP 18; TEMP 36.7; O2SAT 97
[2021-08-01] MEDS: Thiamine Hydrochloride 100 MG Tablet PO (08:01)
[2021-08-01] MEDS: Folic Acid 1 MG Tablet PO (08:01)
[2021-08-01 09:08] VITALS: PULSE 81
[2021-08-01 09:12] VITALS: BP 121/82; PULSE 81; RESP 18; TEMP 36.5; O2SAT 99
--- NOTE | 2021-08-01 09:57 | PCM.DC.SUM ---
Providers Date of Admission: 07/29/21 Primary Care Physician: Dr. Kirsten Vitale MD Reason For Visit: DESIRE FOR DETOXIFICATION Diagnosis Discharge Diagnosis (1) Alcohol withdrawal: Status: Acute Code(s): F10.239 - Alcohol dependence with withdrawal, unspecified Qualifiers: Complication of substance-induced condition: uncomplicated Qualified Code(s): F10.230 - Alcohol dependence with withdrawal, uncomplicated (2) Alcohol intoxication: Status: Acute Code(s): F10.929 - Alcohol use, unspecified with intoxication, unspecified Medications at Discharge Home Medications NK 07/29/21 Hospital Course Operations None Procedures None Summary of Care Provided Minutes Spent on Discharge: 35 Hospital Course: Patient is a 30 y/o male with a PMH as outlined who was admitted via the ED on 07/29/2021 for alcohol detox. He drank 20-30 regular beers daily and had been trying to taper off alcohol at home by himself, without any success, as he developed nausea, vomiting an anxiety. He also admitted to marijuana and cocaine use. Serum alcohol level was 167, and CBC and BMP were otherwise unremarkable. He was admitted to be managed for acute alcohol withdrawal. He was started on phenobarbital withdrawal protocol. He tolerated the 3 day detox process and felt well. He remained stable and was discharged on 08/01/2020. He is to follow up with his PCP in 1-2 weeks, and is also to follow up with [facility] on outpatient basis. Patient seen and examined prior to discharge. He had no complaints and felt well. REview of systems is otherwise negative. Labs and vitals reviewed. Home meds reviewed and reconciled. Physical Exam Const alert, oriented x3 and no apparent distress General Appearance: cooperative and comfortable Exam Limitations: no limitations HEENT normocephalic, head/scalp atraumatic and moist oral mucous membranes Eyes PERRL, EOMs intact bilaterally and conjunctivae normal Neck no lymphadenopathy Resp normal respiratory effort, no retractions, no use of accessory muscles and clear to auscultation bilaterally Cardio regular rate, regular rhythm, S1 normal heart sound, S2 normal heart sound and no murmurs GI normal to inspection, nondistended, normoactive bowel sounds, soft to palpation, non-tender and non-distended Extremity normal to inspection, full ROM and no clubbing, cyanosis or edema Skin no rashes or lesions noted and no wounds Neuro oriented x3, CN's II-XII intact bilaterally and moves all extremities Sensorium / Orientation: awake and alert Psych affect normal Weight / BMI Weight Weight: 147 lb 4.301 oz Body Mass Index (BMI) 21.7 ABG / Lab / Microbiology Data Result Diagrams: 07/30/21 15:32 07/30/21 15:32 D/C Instructions Discharge Diet: No restrictions Discharge Activity: Return to Normal Activity Weight Bearing Status: Weight bearing as tolerated Call your doctor if you observe: Fever of 101 or Higher, Shortness of breath and Swelling in the ankles Meaningful Use Info Meaningful Use Diagnoses (Choose all that apply): None applicable Discharge Plan Admission Admit Date/Time: 07/29/21 21:45 Primary Reason for Your Visit: acute alcohol withdrawal Attending Provider: Elizabeth Yi Primary Care Provider: Kirsten Vitale Discharge Orders/Prescriptions Prescriptions: No Action NK RF: 0 Referrals / Follow Up: Kirsten Vitale MD [Primary Care Provider] - Within 2 Weeks Disposition Disposition (needs filled in before D/C Order can be placed): Home, Self Care Charges/Coding Visit Charges Inpatient E&M: 11016 Disch Hosp
[2021-08-01 10:01] VITALS: BP 121/82; PULSE 81; RESP 18; TEMP 36.5; O2SAT 99
--- NOTE | 2021-08-01 10:54 | NURSING ---
Reviewed discharge instructions with pt.
== END 2021-08-01 10:57 | disposition home or self-care (01) | DRG 774 ==
LOC: ED 21:52 → MS3 22:08
PROVIDERS: Internal Medicine; Admitting Provider Hospitalist; Emergency Provider Emergency Medicine; PCP Internal Medicine; Visit Provider Student in an Organized Health Care Education/Training Program
DX: F10.230 Alcohol dependence with withdrawal, uncomplicated (principal); F14.90 Cocaine use, unspecified, uncomplicated; F17.220 Nicotine dependence, chewing tobacco, uncomplicated; F41.9 Anxiety disorder, unspecified; F12.10 Cannabis abuse, uncomplicated; R73.9 Hyperglycemia, unspecified; Y90.6 Blood alcohol level of 120-199 mg/100 ml; R03.0 Elevated blood-pressure reading, without diagnosis of hypertension
CPT/HCPCS: 36415; 80048; 80053; 80307; 82077; 85025; 99283; A4216

== ENCOUNTER → 2023-01-16 | Outpatient (CLI) | payer MEDICAID, SELFPAY ==
[2023-01-16 16:12] LABS: Absolute Lymphocyte Count 1.48 X10^3/uL (0.83-4.51); Absolute Neutrophil Count 5.3 X10^3/uL (2.0-7.7); Basophil# 0.04 X10^3/uL; Basophil% 0.5 % (0-1); Eosinophil# 0.02 X10^3/uL; Eosinophils% 0.3 % (0-5); Hematocrit 47.2 % (40-54); Hemoglobin 16.1 g/dL (13.0-16.5); Lymphocyte # 1.48 X10^3/ul (0.83-4.51); Lymphocyte % 19.9 % (19-41); Mean Corp Hgb Conc 34.1 g/dL (32-36); Mean Corpuscular Hgb 30.4 pg (27.0-32.0); Mean Corpuscular Volume 89.2 fL (80-94); Mean Platelet Vol. 10.4 fl (6.2-12.0); Monocyte# 0.54 X10^3/uL; Monocyte% 7.3 % (0-10); NRBC Flagged by Analyzer 0 % (0-5); Neutrophil # 5.33 X10^3/uL (2.7-7.7); Neutrophil % 71.7 % (47-70); Platelet Count 235 K/mm3 (150-450); RBC Distribution Width SD 42.6 fl (35.1-43.9); Red Blood Count 5.29 M/mm3 (4.6-6.2); White Blood Count 7.4 K/mm3 (4.4-11.0)
[2023-01-16 16:36] LABS: ALB/GLOB Ratio 1.5 RATIO (0.9-2.4); AST(SGOT) 201 U/L (15-37); Alanine Aminotransfer ALT/SGPT 127 U/L (16-61); Albumin, Serum 4.4 g/dL (3.2-5.0); Alkaline Phosphatase 63 U/L (45-117); Anion Gap 6 (5-15); BUN 13 mg/dL (7-18); BUN/Creat Ratio 13.5 RATIO (10-20); Calcium,Total 8.9 mg/dL (8.5-10.1); Chloride 105 mmol/L (98-107); Cholesterol 129 mg/dL (200); Creatinine, Serum 0.96 mg/dL (0.70-1.30); EST Glomerular Filtration Rate 96 mL/min (>60); Est Glom Filt Rate - Afr Amer 116 mL/min (>60); Globulin 2.9 g/dL (2.2-4.2); Glucose 82 mg/dL (74-106); High Density Lipoprotein 56 mg/dL; Potassium 3.8 mmol/L (3.5-5.1); Protein, Total 7.3 g/dL (6.4-8.2); Sodium Level 139 mmol/L (136-145); Thyroid Stim Hormone (TSH) 1.63 uIU/mL (0.358-3.74); Triglycerides 39 mg/dL; Very Low Density Lipoprotein 8 mg/dL (5-40)
[2023-01-16 16:41] LABS: Vitamin D,25 Hydroxy 30.8 ng/mL
[2023-01-21 12:08] LABS: Testosterone, % Free 2.04 % (1.50-4.20); Testosterone, Free 10.55 ng/dL (5.00-21.00); Testosterone, Total 517 ng/dL (264-916)
== END | disposition home or self-care (01) ==
LOC: LAB 15:22
PROVIDERS: PCP Internal Medicine; Referring Provider Internal Medicine; Visit Provider Internal Medicine
DX: Z00.00 Encounter for general adult medical examination without abnormal findings (principal); F10.11 Alcohol abuse, in remission; E55.9 Vitamin D deficiency, unspecified; Z13.220 Encounter for screening for lipoid disorders; N52.9 Male erectile dysfunction, unspecified
CPT/HCPCS: 36415; 80053; 80061; 82306; 84402; 84403; 84443; 85025

== ENCOUNTER → 2023-01-18 | Outpatient (CLI) | payer MEDICAID, SELFPAY ==
--- NOTE | 2023-01-18 09:47 | US_ITS ---
STUDY: ABDOMINAL ULTRASOUND - RIGHT UPPER QUADRANT REASON FOR VISIT: Male, 32 years old elevated lft TECHNIQUE: Ultrasound evaluation of the right upper quadrant was performed with real-time and static hernandez-scale imaging. TECHNICAL QUALITY: Adequate. COMPARISON: None. FINDINGS: Liver: The liver measures 14.7 cm. There is normal echogenicity of the liver. The bile ducts are within normal limits. There is hepatic color flow. The direction of portal flow is hepatopetal. There is no demonstrated mass lesion. Gallbladder: Normal distended gallbladder. The gallbladder wall measures 1 mm. There is a negative sonographic David''s sign. There is no pericholecystic fluid. There are no gallstones. Common Bile Duct (C.B.D.): The common bile duct measures 2 mm. Pancreas: Normal size of the head, body and tail of the pancreas. There is normal echogenicity of the pancreas. There is no demonstrated pancreatic mass or cyst. Right Kidney: Normal size of the right kidney. The right kidney measures 10.3 cm x 5.6 cm x 3.9 cm. Normal renal cortex. The right cortex measures 1.6 cm. There is no demonstrated renal mass or cyst. There is no right hydronephrosis. US/Liver IMPRESSION: Normal right upper quadrant ultrasound examination. Electronically Signed: Candelario Perdomo MD at 10:35 EDT ,
[2023-01-18 11:56] LABS: ALB/GLOB Ratio 1.4 RATIO (0.9-2.4); AST(SGOT) 96 U/L (15-37); Alanine Aminotransfer ALT/SGPT 97 U/L (16-61); Alkaline Phosphatase 61 U/L (45-117); Anion Gap 3 (5-15); BUN 12 mg/dL (7-18); BUN/Creat Ratio 12.9 RATIO (10-20); Calcium,Total 8.8 mg/dL (8.5-10.1); Chloride 107 mmol/L (98-107); Creatinine, Serum 0.93 mg/dL (0.70-1.30); EST Glomerular Filtration Rate 99 mL/min (>60); Est Glom Filt Rate - Afr Amer 120 mL/min (>60); Globulin 2.8 g/dL (2.2-4.2); Glucose 89 mg/dL (74-106); Lipase 24 U/L (13-75); Potassium 4.7 mmol/L (3.5-5.1); Protein, Total 6.8 g/dL (6.4-8.2); Sodium Level 140 mmol/L (136-145)
== END | disposition home or self-care (01) ==
PROVIDERS: PCP Internal Medicine; Referring Provider Internal Medicine; Visit Provider Internal Medicine
DX: R79.89 Other specified abnormal findings of blood chemistry (principal)
CPT/HCPCS: 36415; 76705; 80053; 83690

== ENCOUNTER 2023-11-29 10:46 | Emergency (ER) | payer BC, SELFPAY ==
[2023-11-29 10:46] VITALS: BP 182/119; PULSE 104; RESP 17; TEMP 36.2; O2SAT 96; BMI 24.7
[2023-11-29 11:37] LABS: Absolute Lymphocyte Count 1.71 X10^3/uL (0.83-4.51); Absolute Neutrophil Count 4.2 X10^3/uL (2.0-7.7); Basophil# 0.05 X10^3/uL; Basophil% 0.8 % (0-1); Eosinophil# 0.09 X10^3/uL; Eosinophils% 1.4 % (0-5); Hematocrit 50.4 % (40-54); Lymphocyte # 1.71 X10^3/ul (0.83-4.51); Lymphocyte % 26.5 % (19-41); Mean Corp Hgb Conc 35.7 g/dL (32-36); Mean Corpuscular Hgb 31.1 pg (27.0-32.0); Mean Corpuscular Volume 87.2 fL (80-94); Mean Platelet Vol. 10.3 fl (6.2-12.0); Monocyte# 0.41 X10^3/uL; Monocyte% 6.4 % (0-10); NRBC Flagged by Analyzer 0 % (0-5); Neutrophil # 4.17 X10^3/uL (2.7-7.7); Neutrophil % 64.6 % (47-70); Platelet Count 231 K/mm3 (150-450); RBC Distribution Width CV 12.3 % (11.6-14.6); RBC Distribution Width SD 38.9 fl (35.1-43.9); Red Blood Count 5.78 M/mm3 (4.6-6.2); White Blood Count 6.5 K/mm3 (4.4-11.0)
--- NOTE | 2023-11-29 11:37 | ED.VIS.GI ---
HPI <SHAD Alvarenga - Last Filed: 11/29/23 14:19> HPI - GI History of Present Illness Chief Complaint: Abd Pain Narrative Narrative: Patient presenting today due to right mid/upper abdominal pain that he has had constantly over the last few weeks. He reports that it is a constant dull ache that is worsened with eating or drinking alcohol. His pain worsened yesterday and today, prompting him to come in for evaluation. He reports that he does drink frequently, about 4 times per week having multiple drinks each time. He has noticed that his pain is worse the next day. He denies any history of abdominal surgery. Today he did feel nauseous but denies any fevers, chills, vomiting, diarrhea, constipation, and urinary symptoms. PFSH <SHAD Alvarenga - Last Filed: 11/29/23 14:19> PFSH Medical History Alcohol abuse Anxiety Chest pain Depression Elevated blood pressure reading Former smoker GERD (gastroesophageal reflux disease) Herpes History of alcohol abuse Substance abuse Home Medications valacyclovir 1 gram tablet (Valtrex) 1,000 mg PO DAILY #90 tabs 11/20/23 [Rx Last Taken Unknown] gabapentin 400 mg capsule 400 mg PO TID 11/29/23 [History Last Taken Unknown] ondansetron 4 mg disintegrating tablet 4 mg PO Q8H PRN PRN Nausea #10 tabs 11/29/23 [Rx Last Taken Unknown] Allergy/AdvReac Type Severity Reaction Status Date / Time No Known Allergies Allergy Verified 05/06/23 10:31 Family History Father Heart disease Myocardial infarction Grandfather Heart disease Myocardial infarction Cancer stomach Grandmother Colon cancer Surgical History Hx of rhinoplasty Social History Smoking Status: Former smoker quit date: 07/22/13 Tobacco: How many years used: 7 Smokeless tobacco user: chewing tobacco alcohol intake: former year quit: 2020 substance use type: does not use what type of physical activity do you participate in: bicycling frequency: daily ROS <SHAD Alvarenga - Last Filed: 11/29/23 14:19> ROS ED Constitutional Constitutional ED: Denies chills or fever(s) Cardiovascular Cardiovascular: Denies chest pain Respiratory/Chest Respiratory/Chest: Denies cough or dyspnea Gastrointestinal Gastrointestinal: Reports abdominal pain and nausea; Denies constipation, diarrhea or vomiting Genitourinary Genitourinary ED: Denies dysuria, hematuria or urinary urgency Musculoskeletal Musculoskeletal: Denies arthralgias or myalgias Integumentary Denies rash Neurologic Neurologic: Denies weakness EXAM <SHAD Alvarenga - Last Filed: 11/29/23 14:19> Physical Exam Const Vital Signs: 11/29/23 10:46 11/29/23 12:46 11/29/23 14:23 Temperature 97.2 F L 98.1 F Temperature Source Temporal Pulse Rate 104 H 93 89 Respiratory Rate 17 16 18 Blood Pressure 182/119 H 175/102 H 153/88 H Blood Pressure Mean 140 126 109 Pulse Ox 96 97 97 Oxygen Delivery Method Room Air Room Air Positive well nourished, well developed and no apparent distress General Appearance ED: well developed HEENT Reports normocephalic and head/scalp atraumatic Mouth ED: Yes moist mucous membranes normal Eyes PERRL and EOMs intact bilaterally Neck full ROM and supple Chest Wall inspection of chest normal Resp normal respiratory effort and clear to auscultation bilaterally Cardio regular rate and regular rhythm GI soft to palpation, non-tender, non-distended and no masses GI Narrative: Negative David sign, negative McBurney's point tenderness, no rigidity, no guarding Back/Spine normal ROM and normal to inspection Extremity normal to inspection and full ROM Neuro oriented x3, CN's II-XII intact bilaterally, moves all extremities, no focal motor deficits and no sensory deficits noted Sensorium / Orientation: awake and alert Psych mental status grossly normal and thought process normal Skin no rashes or lesions noted and no wounds <Dr. Roman Clayton DO - Last Filed: 11/29/23 15:26> Physical Exam Const Vital Signs: 11/29/23 10:46 11/29/23 12:46 11/29/23 14:23 Temperature 97.2 F L 98.1 F Temperature Source Temporal Pulse Rate 104 H 93 89 Respiratory Rate 17 16 18 Blood Pressure 182/119 H 175/102 H 153/88 H Blood Pressure Mean 140 126 109 Pulse Ox 96 97 97 Oxygen Delivery Method Room Air Room Air [facility] <SHAD Alvarenga - Last Filed: 11/29/23 14:19> [facility] Narrative Medical decision making narrative: Patient presenting today with right mid/upper abdominal pain he has had constantly over the past few weeks that worsened yesterday. He does admit to frequent alcohol use which does seem to worsen the pain. His abdomen is soft and nontender, negative David sign, negative McBurney's point tenderness. Labs will be obtained to rule out leukocytosis, anemia, electrolyte abnormality, hepatobiliary etiology, and pancreatitis. He will be given IV Toradol and Zofran for pain and nausea. CBC shows a hemoglobin of 18, this has been elevated in the past, he was given IV fluids. CMP, lipase, and UA are unremarkable. CT scan of the abdomen and pelvis shows mesenteric adenitis. On examination patient reports improvement of his symptoms. He will be given a prescription for Zofran, encouraged follow-up with PCP. He will be discharged in stable condition. Lab Data Attestation: I reviewed the patient's lab results. Labs: Laboratory Results - last 24 hr 11/29/23 11/29/23 11:00 13:35 WBC 6.5 RBC 5.78 Hgb 18.0 H* Hct 50.4 MCV 87.2 MCH 31.1 MCHC 35.7 RDW Std Deviation 38.9 RDW Coeff of Negar 12.3 Plt Count 231 MPV 10.3 Immature Gran % (Auto) 0.300 Neut % (Auto) 64.6 Lymph % (Auto) 26.5 [place] % (Auto) 6.4 Eos % (Auto) 1.4 Baso % (Auto) 0.8 Absolute Neuts (auto) 4.2 Absolute Lymphs (auto) 1.71 Nucleated RBC % 0 [address] Path Review May foll Sodium 139 Potassium 3.7 Chloride 105 Carbon Dioxide 30.0 Anion Gap 4 L BUN 13 Creatinine 0.98 Estim Creat Clear Calc 106.21 Est GFR (MDRD) Af Amer 113 Est GFR (MDRD) Non-Af 93 BUN/Creatinine Ratio 13.3 Glucose 100 Calcium 9.4 Total Bilirubin 0.70 AST 16 ALT 29 Alkaline Phosphatase 65 Total Protein 7.8 Albumin 4.4 Globulin 3.4 Albumin/Globulin Ratio 1.3 Lipase 32 Urine Color Yellow Urine Clarity Clear Urine pH 6.0 Ur Specific [place] 1.010 Urine Protein 15 H Urine Glucose (UA) Normal Urine Ketones Negative Urine Occult Blood Negative Urine Nitrite Negative Urine Bilirubin Negative Urine Urobilinogen Normal Ur Leukocyte Esterase 25 H Urine RBC 0 SEEN Urine WBC 0-5 SEEN Ur Squamous Epith Cells 0 SEEN Urine Bacteria 0 SEEN Urine Mucus 0 SEEN Radiography Diagnostic Testing: Clinical Impression(s) from Imaging Studies Abdomen/Pelvis CT 11/29/23 12:10 IMPRESSION: Small lymph nodes are seen in the mesenteric fat in the right lower quadrant suggesting mesenteric adenitis. Contracted gallbladder. Electronically Signed: Candelario Perdomo MD at 13:10 EDT , <Dr. Roman Clayton, DO - Last Filed: 11/29/23 15:26> [facility] Lab Data Labs: Laboratory Results - last 24 hr 11/29/23 11/29/23 11:00 13:35 WBC 6.5 RBC 5.78 Hgb 18.0 H* Hct 50.4 MCV 87.2 MCH 31.1 MCHC 35.7 RDW Std Deviation 38.9 RDW Coeff of Negar 12.3 Plt Count 231 MPV 10.3 Immature Gran % (Auto) 0.300 Neut % (Auto) 64.6 Lymph % (Auto) 26.5 [place] % (Auto) 6.4 Eos % (Auto) 1.4 Baso % (Auto) 0.8 Absolute Neuts (auto) 4.2 Absolute Lymphs (auto) 1.71 Nucleated RBC % 0 [address] Review May foll Sodium 139 Potassium 3.7 Chloride 105 Carbon Dioxide 30.0 Anion Gap 4 L BUN 13 Creatinine 0.98 Estim Creat Clear Calc 106.21 Est GFR (MDRD) Af Amer 113 Est GFR (MDRD) Non-Af 93 BUN/Creatinine Ratio 13.3 Glucose 100 Calcium 9.4 Total Bilirubin 0.70 AST 16 ALT 29 Alkaline Phosphatase 65 Total Protein 7.8 Albumin 4.4 Globulin 3.4 Albumin/Globulin Ratio 1.3 Lipase 32 Urine Color Yellow Urine Clarity Clear Urine pH 6.0 Ur Specific [place] 1.010 Urine Protein 15 H Urine Glucose (UA) Normal Urine Ketones Negative Urine Occult Blood Negative Urine Nitrite Negative Urine Bilirubin Negative Urine Urobilinogen Normal Ur Leukocyte Esterase 25 H Urine RBC 0 SEEN Urine WBC 0-5 SEEN Ur Squamous Epith Cells 0 SEEN Urine Bacteria 0 SEEN Urine Mucus 0 SEEN Radiography Diagnostic Testing: Clinical Impression(s) from Imaging Studies Abdomen/Pelvis CT 11/29/23 12:10 IMPRESSION: Small lymph nodes are seen in the mesenteric fat in the right lower quadrant suggesting mesenteric adenitis. Contracted gallbladder. Electronically Signed: Candelario Perdomo MD at 13:10 EDT , Treatment and Re-Evaluation :: I have personally performed a face to face assessment of the patient and have reviewed the SAUNDRA Note. I performed a substantive portion of the visit including all aspects of the following. My ruiz findings include: History: Patient presents with right-sided abdominal pain that has been getting worse over the past 2 weeks. Patient states his mainly over the right mid abdomen. Patient states it sometimes gets worse after eating. Patient states nothing makes it better. Patient describes as burning sensation. Patient admits to some nausea but denies any vomiting. Patient denies any diarrhea, melena, or hematochezia. Patient denies any dysuria or hematuria but admits to some urinary frequency. Patient denies any fevers or chills. Exam: Vital signs are stable. Patient is afebrile. Patient is in no acute distress. Oral mucosa is pink and moist. Neck is supple. Trachea is midline. There is no JVD. Heart was regular rate and rhythm. Lungs are clear and equal bilaterally. Abdomen is soft. Bowel sounds are normal. There is some mild right mid abdominal tenderness. There is no rebound or guarding noted. Cranial nerves II through XII are intact. There are no focal motor or sensory deficits noted. Medical Decision Making: Differential diagnosis includes cholecystitis, pancreatitis, cholelithiasis, ureteral calculus, urinary tract infection, pyelonephritis, and viral illness. CBC will be obtained to assess for leukocytosis and anemia. Comprehensive metabolic profile will be obtained to assess for electrolyte abnormality and renal function. Lipase will be obtained to assess for pancreatitis. Urinalysis will be obtained to assess for urinary tract infection and hematuria. CT scan of the abdomen and pelvis will be obtained to assess for ureteral calculus and pyelonephritis. CBC was reviewed. Hemoglobin was elevated at 18.0. The remainder is within normal limits. Comprehensive metabolic profile was reviewed and was within normal limits. Lipase was reviewed and was normal at 32. Urinalysis was reviewed and was within normal limits. CT scan of the abdomen and pelvis was obtained. There is no ureteral calculus noted. There is mesenteric adenitis noted. There is no acute abnormality noted. This was interpreted by the radiologist and was also independently reviewed by myself. Patient was advised of his findings. Patient was instructed to take Tylenol or ibuprofen as needed for pain. Patient was instructed to follow-up with his primary care physician in 5 to 7 days. Patient understood and was agreeable with the plan. All questions were answered. Discharge Plan Triage Chief Complaint: Abd Pain ED Midlevel Provider: Claribel Little ED Provider: Roman Clayton Dx/Rx/DC Orders Clinical Impression: Abdominal pain, Nausea Instructions: Abdominal Pain Prescriptions: New ondansetron 4 mg tablet,disintegrating 4 mg PO Q8H PRN PRN (Reason: Nausea) Qty: 10 0RF No Action gabapentin 400 mg capsule 400 mg PO TID valacyclovir [Valtrex] 1 gram tablet 1,000 mg PO DAILY Qty: 90 3RF Primary Care Provider: Kirsten Vitale Referrals: Kirsten Vitale MD [Primary Care Provider] - 3-5 Days if not improving Activity Restrictions/Additional Instructions: Follow-up with your PCP and return for any worsening of your symptoms. Disposition Disposition: Home, Self Care Discharge Date/Time: 11/29/23 14:37
[2023-11-29] MEDS: Ondansetron 4 MG/2 ML Vial IV (11:47)
[2023-11-29] MEDS: Ketorolac 15 MG/ML Vial IV (11:47)
[2023-11-29 11:55] LABS: ALB/GLOB Ratio 1.3 RATIO (0.9-2.4); AST(SGOT) 16 U/L (15-37); Alanine Aminotransfer ALT/SGPT 29 U/L (16-61); Albumin, Serum 4.4 g/dL (3.2-5.0); Alkaline Phosphatase 65 U/L (45-117); Anion Gap 4 (5-15); BUN 13 mg/dL (7-18); BUN/Creat Ratio 13.3 RATIO (10-20); Calcium,Total 9.4 mg/dL (8.5-10.1); Chloride 105 mmol/L (98-107); Creatinine, Serum 0.98 mg/dL (0.70-1.30); EST Glomerular Filtration Rate 93 mL/min (>60); Est Glom Filt Rate - Afr Amer 113 mL/min (>60); Estimated Creatinine Clearance 106.21 ml/min; Globulin 3.4 g/dL (2.2-4.2); Glucose 100 mg/dL (74-106); Lipase 32 U/L (13-75); Potassium 3.7 mmol/L (3.5-5.1); Protein, Total 7.8 g/dL (6.4-8.2); Sodium Level 139 mmol/L (136-145)
--- NOTE | 2023-11-29 12:10 | CT_ITS ---
STUDY: CT ABDOMEN AND PELVIS WITHOUT CONTRAST REASON FOR EXAM: Male, 33 years old. 2 week history of right-sided abdominal pain. History of ethanol abuse. RADIATION DOSAGE (If Supplied By Facility): CTDIvol = ( 6.31 ) mGy, DLP = ( 318.59 ) mGycm TECHNIQUE: Transaxial images were obtained from the dome of the diaphragm to the symphysis pubis without oral contrast, and without intravenous contrast. Sagittal and coronal images were reconstructed. Individualized dose optimization techniques were used for this CT. COMPARISON: None. FINDINGS: The visualized lung bases are unremarkable. The visualized portions of the heart are within normal limits. Normal liver. The gallbladder is contracted. Normal spleen. Normal pancreas. Normal bilateral adrenal glands. Normal right kidney. Normal left kidney. Normal visualized stomach. Normal small intestine. Normal colon. The appendix is visualized and appears normal. Small lymph nodes are seen in the mesenteric fat in the right lower quadrant. This may represent mesenteric adenitis. Normal abdominal aorta. Normal inferior vena cava. Normal retroperitoneum. Normal urinary bladder. There is a small umbilical hernia containing fat. Normal osseous structures. CT/Abdomen/Pelvis without Cont IMPRESSION: Small lymph nodes are seen in the mesenteric fat in the right lower quadrant suggesting mesenteric adenitis. Contracted gallbladder. Electronically Signed: Candelario Perdomo MD at 13:10 EDT ,
[2023-11-29 12:46] VITALS: BP 175/102; PULSE 93; RESP 16; O2SAT 97
[2023-11-29] MEDS: 0.9% Normal Saline (1000mL) 1,000 ML 999 ML IV (12:48)
[2023-11-29 13:40] LABS: Bacteria 0 SEEN /hpf (None Seen); Mucous, Urine 0 SEEN /hpf (<or=2+); Red Blood Cells-Urine 0 SEEN /hpf (0-5); Squamous Epithelial Cells - UA 0 SEEN /hpf (0-5)
[2023-11-29 13:46] LABS: Color, Urine Yellow (Yellow); Glucose, Dipstick Normal (Normal); Ketone-Dipstick Negative (Negative); Leukocyte Esterase-Dipstick 25 /ul (Negative); Nitrite-Dipstick Negative (Negative); Occult Blood-Urine Negative /ul (Negative); Protein-Dipstick 15 mg/dl (Negative); Urine Bilirubin Dipstick Negative (Negative); Urine Clarity Clear (Clear); Urine Urobilinogen Normal (Normal)
[2023-11-29 14:02] LABS: White Blood Cells 0-5 SEEN /hpf (0-5)
[2023-11-29 14:23] VITALS: BP 153/88; PULSE 89; RESP 18; TEMP 36.7; O2SAT 97
[2023-12-03 10:34] LABS: Pathologist Review Reviewed
== END 2023-11-29 14:37 | disposition home or self-care (01) ==
PROVIDERS: Physician Assistant; Emergency Provider Emergency Medicine; PCP Internal Medicine; Visit Provider Emergency Medicine
DX: R10.9 Unspecified abdominal pain (principal); R11.0 Nausea; I88.0 Nonspecific mesenteric lymphadenitis; K21.9 Gastro-esophageal reflux disease without esophagitis; F17.220 Nicotine dependence, chewing tobacco, uncomplicated
CPT/HCPCS: 74176; 80053; 81001; 83690; 85025; 96361; 96374; 96375; 99283; J7030; A4216; J2405

== ENCOUNTER 2025-02-14 15:08 | Emergency (ER) | payer BC, SELFPAY ==
[2025-02-14 15:11] VITALS: BP 154/100; PULSE 108; RESP 12; TEMP 37.4; O2SAT 86; BMI 23.4
[2025-02-14 15:16] VITALS: O2SAT 98
--- NOTE | 2025-02-14 15:24 | EKG12_ITS ---
Test Reason : OD Blood Pressure : */* mmHG Vent. Rate : 114 BPM Atrial Rate : 114 BPM P-R Int : 132 ms QRS Dur : 100 ms QT Int : 342 ms P-R-T Axes : 71 72 57 degrees QTcB Int : 471 ms Sinus tachycardia Otherwise normal ECG Confirmed by TREMAINE CUENCA, DHARMESH ([id number]), editor & co founder TEN EGAN ([id number]) on 02/15/2025 1:01:42 PM Referred By: Confirmed By: DHARMESH PENALOZA MD
--- NOTE | 2025-02-14 15:25 | EX.ED.DYSGE1 ---
HPI History of Present Illness Chief Complaint: Unresponsive Narrative Narrative: 34-year-old male presents via EMS with change in mental status/unresponsiveness. Reportedly he was found in a parking lot and was unresponsive. Per RN, when he falls asleep, his oxygen level will desaturate into the 80s. He relates history that while he was driving he felt confused so he pulled over into a parking lot. He was in the parking lot talking to a girl that was there. When he woke up, she was gone. He does admit to marijuana use earlier today. He states that he is stressed and anxious over the diagnosis of ALS and his mother. He denies any physical symptoms. [facility] Medical History Substance abuse Depression GERD (gastroesophageal reflux disease) Former smoker Chest pain Elevated blood pressure reading Alcohol abuse History of alcohol abuse Anxiety Herpes Home Medications Medication Instructions Recorded Last Taken Type valacyclovir 1 gram tablet 1,000 mg PO DAILY #90 tabs 11/20/23 Unknown Rx (Valtrex) gabapentin 400 mg capsule 400 mg PO TID 11/29/23 Unknown History ondansetron 4 mg disintegrating 4 mg PO Q8H PRN PRN Nausea #10 tabs 11/29/23 Unknown Rx tablet Allergy/AdvReac Type Severity Reaction Status Date / Time No Known Allergies Allergy Verified 02/14/25 15:09 Family History Father Heart disease Myocardial infarction Grandfather Heart disease Myocardial infarction Cancer stomach Grandmother Colon cancer Surgical History Hx of rhinoplasty Social History Smoking Status: Former smoker quit date: 07/22/13 Tobacco: How many years used: 7 Smokeless tobacco user: chewing tobacco alcohol intake: former year quit: 2020 substance use type: does not use what type of physical activity do you participate in: bicycling frequency: daily ROS ROS ED ROS Narrative Review of systems positive for reported confusion while driving. States has had intermittent headaches over the last several days and admits to marijuana use earlier today. Positive change in mental status/decreased mental status today. EXAM Physical Exam Narrative Exam Narrative: Afebrile. Vital signs noted. Nontoxic-appearing. Intermittently drowsy. Cardiovascular examination reveals mild tachycardia. Lungs clear to auscultation bilaterally. Abdomen is soft, nontender without guarding or rebound. Positive bowel sounds. Neurological examination is nonfocal, nonlateralizing. He appears drowsy at times and will fall asleep during the interview. However, he is answering questions appropriately and does not appear internally stimulated. Mild anxiety. Const Vital Signs: 02/14/25 15:11 02/14/25 15:16 02/14/25 15:40 Temperature 99.3 F H Temperature Source Oral Pulse Rate 108 H Respiratory Rate 12 Blood Pressure 154/100 H Blood Pressure Mean 118 Pulse Ox 86 98 88 Oxygen Delivery Method Room Air Nasal Cannula Room Air Oxygen Flow Rate (L/min) 2 02/14/25 15:40 02/14/25 16:15 02/14/25 18:02 Temperature Temperature Source Pulse Rate 142 H 117 H 113 H Respiratory Rate 24 H 20 H 16 Blood Pressure 161/89 H 161/90 H 129/109 H Blood Pressure Mean 113 113 115 Pulse Ox 99 97 99 Oxygen Delivery Method Room Air Room Air Room Air Oxygen Flow Rate (L/min) MDM MDM MDM Narrative Medical decision making narrative: Differential diagnosis includes but not limited to mental status change secondary to dehydration versus other electrolyte abnormality versus substance abuse. Patient states that he did not take any opioids today but used marijuana earlier. I did review his prior ED records and he has a problem list that includes a history of alcohol abuse and substance abuse as well as depression and anxiety. I offered to have him speak to the social service coordinator regarding his mother's reported diagnosis of ALS and how he is handling it but he declined. EKG was obtained and interpreted by myself independently as sinus tachycardia at 114 bpm without ectopy or acute ST changes. No STEMI. Currently, he is satting well on nasal cannula oxygen, I do not feel that he requires Narcan emergently. This will be considered though should he become more drowsy with decreased mental status. He was administered Narcan 1 mg intravenously. I reviewed his laboratory work and he has a normal white count of 9.6 with hemoglobin normal at 14.7, hematocrit 41.5, platelet count normal at 182. Glucose appropriately elevated at 127, normal electrolytes. Ethyl alcohol is negative at 10.1. [id number] glucose was normal at 130 initially. Urine for drugs of abuse is positive for fentanyl, amphetamines, benzodiazepines, and cannabinoids. Upon repeat examination, patient is more awake and alert and sitting up in bed not requiring oxygen at 1820. I feel he can be discharged to follow-up with his primary care provider and [facility] as needed. He has been observed in the emergency department for over 3 hours. Return instructions reviewed. Disposition is discharged home in stable condition. History & Record Review Discussion w/independent historian: Patient Lab Data Attestation: I reviewed the patient's lab results. Labs: Laboratory Results - last 24 hr 02/14/25 02/14/25 02/14/25 15:15 15:39 17:05 WBC 9.6 RBC 4.83 Hgb 14.7 Hct 41.5 MCV 85.9 MCH 30.4 MCHC 35.4 RDW Std Deviation 39.8 RDW Coeff of Negar 12.9 Plt Count 182 MPV 9.8 Sodium 140 Potassium 3.5 Chloride 101 Carbon Dioxide 26.0 Anion Gap 13 BUN 17 Creatinine 1.00 Estim Creat Clear Calc 103.10 Est GFR (MDRD) Non-Af 101 BUN/Creatinine Ratio 16.9 Glucose 127 H Calcium 8.5 Total Bilirubin 0.64 AST 23 ALT 19 Alkaline Phosphatase 61 Total Protein 6.6 Albumin 4.6 Globulin 2.1 L Albumin/Globulin Ratio 2.2 Urine Opiates Screen NEGATIVE U Buprenorphine Qual NEGATIVE Ur Oxycodone Screen NEGATIVE Urine Methadone Screen NEGATIVE Urine Fentanyl Screen PRESUMPTIVE POSITIVE Ur Barbiturates Screen NEGATIVE Ur Phencyclidine Scrn NEGATIVE Ur Amphetamines Screen PRESUMPTIVE POSITIVE U Benzodiazepines Scrn PRESUMPTIVE POSITIVE Urine Cocaine Screen NEGATIVE U Cannabinoids Screen PRESUMPTIVE POSITIVE Ethyl Alcohol < 10.1 POC Glucose 130 H Discharge Plan Triage Chief Complaint: Unresponsive ED Provider: Dorian Narayan Dx/Rx/DC Orders Clinical Impression: Polysubstance abuse, Mental status change resolved Instructions: ED Drug Abuse Prescriptions: No Action gabapentin 400 mg capsule 400 mg PO TID ondansetron 4 mg tablet,disintegrating 4 mg PO Q8H PRN PRN (Reason: Nausea) Qty: 10 0RF valacyclovir [Valtrex] 1 gram tablet 1,000 mg PO DAILY Qty: 90 3RF Primary Care Provider: Kirsten Vitale Referrals: Counseling,Center [Group of Physicians] - As soon as possible Kirsten Vitale MD [Primary Care Provider] - As soon as possible Activity Restrictions/Additional Instructions: Avoid use of amphetamines and opiates. Print Language: Albanian Disposition Disposition: Home, Self Care
[2025-02-14] MEDS: 0.9% Normal Saline (1000mL) 1,000 ML 1000 ML IV (15:35)
[2025-02-14 15:39] LABS: Hematocrit 41.5 % (40-54); Hemoglobin 14.7 g/dL (13.0-16.5); Mean Corp Hgb Conc 35.4 g/dL (32-36); Mean Corpuscular Volume 85.9 fL (80-94); Mean Platelet Vol. 9.8 fl (6.2-12.0); Platelet Count 182 K/mm3 (150-450); RBC Distribution Width CV 12.9 % (11.6-14.6); RBC Distribution Width SD 39.8 fl (35.1-43.9); Red Blood Count 4.83 M/mm3 (4.6-6.2); White Blood Count 9.6 K/mm3 (4.4-11.0)
[2025-02-14 15:40] VITALS: BP 161/89; PULSE 142; RESP 24; O2SAT 88; O2SAT 99
[2025-02-14 15:55] LABS: Alcohol, Blood (Medical)-Serum < 10.1 mg/dL (<=10.0)
[2025-02-14 15:56] LABS: AST(SGOT) 23 U/L (<=37); Alanine Aminotransfer ALT/SGPT 19 U/L (<=46); Albumin, Serum 4.6 g/dL (3.5-5.0); Alkaline Phosphatase 61 U/L (40-129); Anion Gap 13 (5-15); BUN 17 mg/dL (4-19); BUN/Creat Ratio 16.9 RATIO (10-20); Calcium,Total 8.5 mg/dL (7.6-11.0); Carbon Dioxide 26.0 mmol/L (21.0-32.0); Chloride 101 mmol/L (98-108); Estimated Creatinine Clearance 103.10 ml/min (50-250); Globulin 2.1 g/dL (2.2-4.2); Glucose 127 mg/dL (70-99); Potassium 3.5 mmol/L (3.3-5.1)
[2025-02-14 16:15] VITALS: BP 161/90; PULSE 117; RESP 20; O2SAT 97
--- NOTE | 2025-02-14 16:40 | ED.RN ---
states unable to void at this time. gave ice water.
--- NOTE | 2025-02-14 16:46 | CM.ED ---
Social Work Date of referral: 02/14/25 Reason for referral: Unresponsive Referred by: Social Work identification Patient provided consent for social work visit. Glove Pairer checked in on patient to see how patient is doing and patient stated he is doing "ok". Patient stated his car was in a parking lot in [place] and that he was found by the police and was confused when he was woken up. Patient stated he fells better now and doesn't what happened. There was an older man in the room, likely to be patient's father. Patient denied the need for any additional concerns/supports needed. Neena Mak, INFORMATION TECHNOLOGY AUDIT MANAGER, MATERIAL CONTROL SUPERVISOR
[2025-02-14 18:00] LABS: Barbiturate Urine NEGATIVE (< 200 ng/mL); Benzodiazepine Urine PRESUMPTIVE POSITIVE (< 200 ng/mL); PCP Urine NEGATIVE (< 25 ng/mL); THC Urine PRESUMPTIVE POSITIVE (< 50 ng/mL)
[2025-02-14 18:02] VITALS: BP 129/109; PULSE 113; RESP 16; O2SAT 99
== END 2025-02-14 18:27 | disposition home or self-care (01) ==
PROVIDERS: Emergency Provider Emergency Medicine; PCP Internal Medicine; Visit Provider Emergency Medicine
DX: R41.82 Altered mental status, unspecified (principal); F19.10 Other psychoactive substance abuse, uncomplicated; K21.9 Gastro-esophageal reflux disease without esophagitis; F17.220 Nicotine dependence, chewing tobacco, uncomplicated
CPT/HCPCS: 80053; 80307; 82077; 82962; 85027; 93005; 96360; 99285; A4216

== ENCOUNTER → 2025-05-24 | Outpatient (CLI) | payer BC, SELFPAY ==
[2025-05-24 12:52] LABS: Hematocrit 46.9 % (40-54); Hemoglobin 16.6 g/dL (13.0-16.5); Immature Granulocytes Count 0.020 X10^3/uL (0.0-0.0); Mean Corp Hgb Conc 35.4 g/dL (32-36); Mean Corpuscular Volume 88.8 fL (80-94); Mean Platelet Vol. 10.0 fl (6.2-12.0); NRBC Flagged by Analyzer 0 % (0-5); Platelet Count 231 K/mm3 (150-450); RBC Distribution Width CV 13.6 % (11.6-14.6); RBC Distribution Width SD 44.2 fl (35.1-43.9); Red Blood Count 5.28 M/mm3 (4.6-6.2); White Blood Count 7.3 K/mm3 (4.4-11.0)
[2025-05-24 14:12] LABS: AST(SGOT) 20 U/L (<=37); Alanine Aminotransfer ALT/SGPT 18 U/L (<=46); Albumin, Serum 4.9 g/dL (3.5-5.0); Alkaline Phosphatase 60 U/L (40-129); Anion Gap 11 (5-15); BUN 10 mg/dL (4-19); BUN/Creat Ratio 10.2 RATIO (10-20); Calcium,Total 9.4 mg/dL (7.6-11.0); Carbon Dioxide 25.3 mmol/L (21.0-32.0); Chloride 103 mmol/L (98-108); Cholesterol 144 mg/dL (<=200); Globulin 2.3 g/dL (2.2-4.2); Glucose 100 mg/dL (70-99); Low Density Lipoprotein Calc. 56 mg/dL; Potassium 3.6 mmol/L (3.3-5.1); Triglycerides 60 mg/dL; Very Low Density Lipoprotein 12 mg/dL (5-40); Vitamin D,25 Hydroxy 10.8 ng/mL (30-100); cholesterol:hdl ratio screen 1.91
== END | disposition home or self-care (01) ==
LOC: LAB 12:13
PROVIDERS: PCP Internal Medicine; Referring Provider Internal Medicine; Visit Provider Internal Medicine
DX: Z00.00 Encounter for general adult medical examination without abnormal findings (principal); Z13.220 Encounter for screening for lipoid disorders; R03.0 Elevated blood-pressure reading, without diagnosis of hypertension; R73.9 Hyperglycemia, unspecified; E55.9 Vitamin D deficiency, unspecified
CPT/HCPCS: 36415; 80053; 80061; 82306; 83036; 85025